=== PATIENT | female | born 2000 | race Caucasian/White ===

== ENCOUNTER 2024-06-28 14:47 | Outpatient (CLI) | payer OTHER, SELFPAY ==
--- NOTE | ~2024-06-28 | US_ITS ---
EXAMINATION: US OB <=14 wk fetus w TV DATE: 06/28/2024 15:40 CDT INDICATION: Dating COMPARISON: None TECHNIQUE: Real-time transabdominal and transvaginal obstetric ultrasound. FINDINGS: 2 para 0 Last menstrual period is given as 04/30/2024. Estimated date of delivery by last menstrual period is 02/04/2025 The uterus measures 12.4 x 6.0 x 5.6 cm. A gestational sac is identified within the uterus. A pole is identified, with a crown-rump length that measures 1.70 cm, corresponding to an appro ximate gestational age of 8 weeks and 2 days. cardiac activity is identified at a rate of 176 bpm. The right ovary measures 3.1 x 2.7 x 1.9 cm. Despite prolonged interrogation, the left ovary was not visualized. Estimated date of delivery by ultrasound is 02/05/2025 IMPRESSION: Single intrauterine gestation with an approximate gestational age of 8 weeks and 2 days, with c ardiac activity identified. Reviewed, dictated and finalized at location A. IMPRESSION: Single intrauterine gestation with an approximate gestational age of 8 weeks an d 2 days, with cardiac activity identified.
== END 2024-06-28 14:48 | disposition home or self-care (01) ==
LOC: GOSHIMG 14:47
PROVIDERS: PCP Student in an Organized Health Care Education/Training Program; Visit Provider Student in an Organized Health Care Education/Training Program
DX: N91.2 Amenorrhea, unspecified (principal); Z3A.08 8 weeks gestation of pregnancy
CPT/HCPCS: 76801; 76817

== ENCOUNTER 2024-08-05 12:31 | Emergency (ER) | payer OTHER, MEDICAID, SELFPAY ==
--- NOTE | ~2024-08-05 | US_ITS ---
FIRST TRIMESTER ULTRASOUND 08/05/2024 13:50 CDT Ordering provider: Rodriguez Boyce MD History: . Vaginal bleeding . Comparison: None. FINDINGS: INTRAUTERINE GESTATIONAL SAC: Present. YOLK SAC: Not visualized. POLE: Present. Measures 7.9 cm. Equivalent to 13 weeks and 6 days. heart rate is 146 bpm. GESTATIONAL AGE BY LMP: GESTATIONAL AGE BY TODAY'S US: UTERUS: The uterus measures 15.3x 10.5x 10.7 cm in length which is within normal limits. No myometria l masses. FREE FLUID: None. OVARIES: Normal in size with the right measuring 2.9x 2.3x 2.8 cm and the left is not visualized Dopp ler flow is demonstrated within the right ovary. ADNEXAL MASSES: None. IMPRESSION: Intrauterine live of 13 weeks and 6 days. JUAN MANUEL is February 04, 2025. Reviewed, dictated and finalized at location A.
[2024-08-05 12:33] VITALS: BP 141/60; PULSE 96; RESP 18; TEMP 36.2; O2SAT 100
--- OUTSIDE RECORDS SUMMARY | 2024-08-05 12:34 | XMS_ITS | Clinical Summary ---
Author Organization [facility] Address [address] [place] [address] Care Team Providers Care Game Protector Name Role Phone Ankur Vanegas MD Primary Care Provider [phone] Allergies No known active allergies Medications atomoxetine (STRATTERA) 10 mg capsule 5 Active escitalopram oxalate (LEXAPRO) 10 mg tablet TAKE 1 Tablet BY MOUTH DAILY AT 7am 5 Active naltrexone (DEPADE) 50 mg tablet TAKE 1 Tablet BY MOUTH DAILY AT 7am 5 Active fluticasone propionate (FLONASE) 50 mcg/spray [place], Suspension nasal inhalerIndicatio ns:Allergic rhinitis, unspecified seasonality, unspecified trigger Administer 2 Sprays in each nostril daily. 16 Gram 1 5 Active Active Problems Problem Noted Date Diagnosed Date Tobacco use 05/24/2024 Cocaine abuse 05/24/2024 Overview (05/24/2024): Has not used in 2 years Methamphetamine abuse 05/24/2024 Overview (05/24/2024): Has not used in 2 years Opioid abuse 05/24/2024 Overview (05/24/2024): Has not used in 2 years Alcohol abuse 05/24/2024 Anxiety 05/24/2024 Recurrent major depressive disorder, in partial remission 05/24/2024 Attention deficit hyperactivity disorder (ADHD) 05/24/2024 Encounters Date Type Department Care Team Description 07/05/2024 External Device Data [facility] ABSTRACTION Provider, Abstract 07/04/2024 External Device Data [facility]CTION Provider, Abstract 06/24/2024 External Device Data [facility]CTION Provider, Abstract 06/23/2024 External Device Data [facility] ABSTRACTION Provider, Abstract 06/20/2024 External Device Data [facility] ABSTRACTION Provider, Abstract 06/06/2024 External Device Data [facility] ABSTRACTION Provider, Abstract 05/30/2024 External Device Data [facility] ABSTRACTION Provider, Abstract 05/30/2024 External Device Data [facility] ABSTRACTION Provider, Abstract 05/30/2024 External Device Data [facility] ABSTRACTION Provider, Abstract 05/29/2024 Results Follow-Up [facility] [address] [facility] [address] [place] [address] Shirin Marie FNP CBC WITH DIFFERENTIAL, COMPREHENSIVE METABOLIC PANEL, TSH REFLEXIVE, Additional followed-up results: 2 05/24/2024 11:00 AM CHILD NUTRITION MANAGER Office Visit [facility] [address] [place] [address] [address] [place] [phone] Shirin Marie FNP Encounter to establish care (Primary Dx); Alcohol abuse; Tobacco use; Cervical cancer screening; Refused influenza vaccine; Allergic rhinitis, unspecified seasonality, unspecified trigger; Opioid abuse ([facility]); Methamphetamine abuse ([facility]); Cocaine abuse ([facility]); Anxiety; Attention deficit hyperactivity disorder (ADHD), unspecified ADHD type; Recurrent major depressive disorder, in partial remission; Screening for lipid disorders; Screening for diabetes mellitus (DM); Thyroid disorder screen from Last 3 Months Family History Medical History Relation Name Comments prediabetes Father Diabetes Paternal Grandfather Heart Disease Paternal Grandmother Relation Name Status Comments Brother Alive Father Alive Mother Alive Paternal Grandfather Paternal Grandmother Social History Tobacco Use Types Packs/Day Years Used Date Smoking Tobacco: Every Day Cigarettes 0.3 10.2 Started: 05/24/2014 Smokeless Tobacco: Current Alcohol Use Standard Drinks/Week Comments Not Currently 0 (1 standard drink = 0.6 oz pur e alcohol) sober 3 months Comments No Sex and Gender Information Value Date Recorded Sex Assigned at Not on file Legal Sex Female 10:12 AM CHILD NUTRITION MANAGER Gender Identity Not on file Sexual Orientation Not on file Last Filed Vital Signs Vital Sign Reading Time Taken Comments Blood Pressure 100/70 05/24/2024 11:10 AM CHILD NUTRITION MANAGER Pulse 100 05/24/2024 11:10 AM CHILD NUTRITION MANAGER Temperature 36.6 C (97.9 F) 05/24/2024 11:10 AM CHILD NUTRITION MANAGER Respiratory Rate - - Oxygen Saturation 99% 05/24/2024 11:10 AM CHILD NUTRITION MANAGER Inhaled Oxygen Concentration - - Weight 85.7 kg (189 lb) 05/24/2024 11:10 AM CHILD NUTRITION MANAGER Height 162.6 cm (5' 4 ) 05/24/2024 11:10 AM CHILD NUTRITION MANAGER Body Mass Index 32.44 05/24/2024 11:10 AM CHILD NUTRITION MANAGER Plan of Treatment Upcoming Encounters Date Type Department Care Team (Late st Contact Info) Description 05/24/2025 10:00 AM CHILD NUTRITION MANAGER Office Visit [facility] [address] [place] [address] Shirin Marie FNP [address] [place] [address] Health Maintenance Due Date Last Done Comments HPV VACCINES (1 - 3-dose series) 2013 DTAP/TDAP/TD VACCINES (1 - Tdap) 2017 HEPATITIS B VACCINES (1 of 3 - 19+ 3-dose series) 06/18 CERVICAL CANCER SCREENING 07/07/2019 HPV/Cotest (21-29) 07/07/2019 PAP SMEAR 07/07/2019 PAP SMEAR 07/07/2019 Preventative Visit- Commercial 04/19/2024 INFLUENZA VACCINE Completed 05/24/2024 Procedures Procedure Name Priority Date/Time Associated Diagnosis Comments HEMOGLOBIN A1C Routine 05/26/2024 9:22 AM CHILD NUTRITION MANAGER Encounter to establish care Screening for diabetes mellitus (DM) LIPID PANEL Routine 05/26/2024 9:22 AM CHILD NUTRITION MANAGER Encounter to establish care Screening for lipid disorders TSH REFLEXIVE Routine 05/26/2024 9:22 AM CHILD NUTRITION MANAGER Encounter to establish care Thyroid disorder screen COMPREHENSIVE METABOLIC PANEL Routine 05/26/2024 9:22 AM CHILD NUTRITION MANAGER Encounter to establish care CBC WITH DIFFERENTIAL Routine 05/26/2024 9:22 AM CHILD NUTRITION MANAGER Encounter to establish care from Last 3 Months Results * TSH REFLEXIVE (05/26/2024 9:22 AM CHILD NUTRITION MANAGER) TSH 1.80 mIU/L [facility] Comment: Reference Range > or = 20 Years 0.40-4.50 Ranges First trimester 0.26-2.66 Second trimester 0.55-2.73 Third trimester 0.43-2.91 FASTING:YES FASTING: YES Test Performed at: [facility] [address] [place] [address] LaceyAudreyCierra Stewart Vo Blood 05/26/2024 9:22 AM CHILD NUTRITION MANAGER 05/26/2024 9:22 AM CHILD NUTRITION MANAGER Shirin Marie F [facility] CHEMISTRY ORDERABLES Final Re sult [facility] [phone] [facility] [place] [address] [place] [address] * CBC WITH DIFFERENTIAL (05/26/2024 9:22 AM CHILD NUTRITION MANAGER) WBC 5.5 3.8 - 10.8 Thousand/u L [facility] RBC 4.70 3.80 - 5.10 Million/uL [facility] HEMOGLOBIN 14.6 11.7 - 15.5 g/dL [facility] HEMATOCRIT 43.8 35.0 - 45.0 % [facility] MCV 93.2 80.0 - 100.0 fL [facility] MCH 31.1 27.0 - 33.0 pg [facility] MCHC 33.3 32.0 - 36.0 g/dL [facility] Comment: For adults, a slight decrease in the calculated MCHC value (in the range of 30 to 32 g/dL) is most likely not clinically significant; however, it should be interpreted with caution in correlation with other red cell parameters and the patient's clinical condition. RDW 11.7 11.0 - 15.0 % [facility] PLATELETS 234 140 - 400 Thousand/u L [facility] MPV 10.4 7.5 - 12.5 fL [facility] NEUTROPHIL ABSOLUTE 3,069 1,500 - 7,800 cells/uL [facility] LYMPHOCYTE ABSOLUTE 1,942 850 - 3,900 cells/uL [facility] MONOCYTE ABSOLUTE 369 200 - 950 cells/uL [facility] EOSINOPHIL ABSOLUTE 110 15 - 500 cells/uL [facility] BASOPHILS ABSOLUTE 11 0 - 200 cells/uL [facility] NEUTROPHIL 55.8 % [facility] LYMPHOCYTES 35.3 % [facility] MONOCYTE 6.7 % [facility] EOSINOPHILS 2.0 % [facility] BASOPHILS 0.2 % [facility] Comment: FASTING:YES FASTING: YES Test Performed at: [facility] [place] [address] [address] Gerda Steve Blood 05/26/2024 9:22 AM CHILD NUTRITION MANAGER 05/26/2024 9:22 AM CHILD NUTRITION MANAGER Shirin Marie F [facility] HEMATOLOGY ORDERABLES Final R esult [facility] [phone] [facility] [place] [address] [address] * HEMOGLOBIN A1C (05/26/2024 9:22 AM CHILD NUTRITION MANAGER) HEMOGLOBIN A1C 5.6 <5.7 % of total Hgb [facility]ones[facility]ilo Garza Comment: For the purpose of screening for the presence of diabetes: <5.7% Consistent with the absence of diabetes 5.7-6.4% Consistent with increased risk for diabetes (prediabetes) > or =6.5% Consistent with diabetes This assay result is consistent with a decreased risk of diabetes. Currently, no consensus exists regarding use of hemoglobin A1c for diagnosis of diabetes in children. According to [place] [employer] (ADA) guidelines, hemoglobin A1c <7.0% represents optimal control in non- diabetic patients. Different metrics may apply to specific patient populations. Standards of Medical Care in Diabetes(ADA). ESTIMATED AVERAGE GLUCOSE (MG/DL) 114 mg/dL [facility] jordan Greg ESTIMATED AVERAGE GLUCOSE (MMOL/L) 6.3 mmol/L [facility] Comment: FASTING:YES FASTING: YES Test Performed at: [facility] [place] [address] [phone] LaceyFarshad Pat Steve Blood 05/26/2024 9:22 AM CHILD NUTRITION MANAGER 05/26/2024 9:22 AM CHILD NUTRITION MANAGER Shirin Mejiajuaquin CON[facility]ER [facility] CHEMISTRY ORDERABLES Final Re sult [facility] [phone] [place] [address] [address] [address] * (ABNORMAL) LIPID PANEL (05/26/2024 9:22 AM CHILD NUTRITION MANAGER) CHOLESTEROL 186 <200 mg/dL [facility] HDL 41(L) > OR = 50 mg/dL [facility] TRIGLYCERIDE 85 <150 mg/dL [facility] LDL CALCULATED 127(H) mg/dL (calc) [facility] Comment: Reference range: <100 Desirable range <100 mg/dL for primary prevention; <70 mg/dL for patients with CHD or diabetic patients with > or = 2 CHD risk factors. LDL-C is now calculated using the Stewart-Alfredo calculation, which is a validated novel method providing better accuracy than the Friedewald equation in the estimation of LDL-C. Stewart TOBAR et al. PETER. 2013;310(19): 2995-1437 (http://education.Arimaz.Advanced System [employer]s/faq/XGS147) CHOL/HDL RATIO 4.5 <5.0 (calc) [facility] NON-HDL CHOLESTEROL 145(H) <130 mg/dL (calc) [facility] Comment: For patients with diabetes plus 1 major ASCVD risk factor, treating to a non-HDL-C goal of <100 mg/dL (LDL-C of <70 mg/dL) is considered a therapeutic option. Test Performed at: [facility] [place] [address] [address] Gerda Stewart Vo Blood 05/26/2024 9:22 AM CHILD NUTRITION MANAGER 05/26/2024 9:22 AM CHILD NUTRITION MANAGER Shirin Marie CONSUMER ADVOCATE CHEMISTRY ORDERABLES Final Re sult [facility] [phone] [facility] [place] [address] [address] * COMPREHENSIVE METABOLIC PANEL (05/26/2024 9:22 AM CHILD NUTRITION MANAGER) GLUCOSE 86 65 - 99 mg/dL [facility] Atile[facility] jordan Greg Comment: Fasting reference interval BUN 10 7 - 25 mg/dL Summer StacieAudreyLilo jordan Greg CREATININE 0.78 0.50 - 0.96 mg/dL [facility] GFR 108 > OR = 60 mL/min/1. 73m2 CamStentLilo Garza BUN/CREAT RATIO SEE NOTE: (calc) [facility] St[facility]ie[facility] jul[facility] Garza Comment: Not Reported: BUN and Creatinine are within reference range. SODIUM 136 135 - 146 mmol/L [facility]Stent[facility]ilo Garza POTASSIUM 4.6 3.5 - 5.3 mmol/L [facility] Stac[facility]ityNetS julian Greg CHLORIDE 100 98 - 110 mmol/L [facility] St[facility]S julian Greg CO2 28 20 - 32 mmol/L [facility] Stacie-S julian Garza CALCIUM 9.7 8.6 - 10.2 mg/dL [facility] TOTAL PROTEIN 7.7 6.1 - 8.1 g/dL [facility] Gar[facility] ALBUMIN 4.7 3.6 - 5.1 g/dL [facility] GLOBULIN 3.0 1.9 - 3.7 g/dL (calc) [facility] julian Greg ALBUMIN/GLOBULIN RATIO 1.6 1.0 - 2.5 (calc) [facility] BILIRUBIN TOTAL 0.6 0.2 - 1.2 mg/dL Summer [facility]ilo jordan Greg ALKALINE PHOSPHATASE 61 31 - 125 U/L [facility] AST 17 10 - 30 U/L [facility] Greg ALT 10 6 - 29 U/L [facility] Greg Comment: FASTING:YES FASTING: YES Test Performed at: [facility] [place] [address] [address] [address] Gerda Stewart Vo Blood 05/26/2024 9:22 AM CHILD NUTRITION MANAGER 05/26/2024 9:22 AM CHILD NUTRITION MANAGER us Shirin Gandhitoño CONSUMER ADVOCATE CHEMISTRY ORDERABLES Final Re sult [facility] [phone] [facility] [address] [place] [address] from Last 3 Months Insurance [employer] CHOICE POS II Care Teams Game Protector Relationship Specialty [place] [address] [address] PCP - General Internal Medicine 05/24/24
--- OUTSIDE RECORDS SUMMARY | 2024-08-05 12:34 | XMS_ITS | Continuity of Care Document ---
Author Organization [facility] Address [address] [place] [address] Phone Care Team Providers Care Kettle Fry Cook Operator Name Role Phone Quigley OD, Geovanny Unavailable Unavailable Procedures Procedure Date Eye Exam, New Patient Refraction Advance Directives Directive Yes / No Effective Date File Name No Information Encounters Encounter Description Practice Location Reason(s) For Visit Diagnoses Date Provider Providers Copied on Encounter [facility], [address], [place], [place], [address], [place] tel:[phone] SEC [facility] No Information 8-201 0 Quigley OD Geovanny. [address] [facility] , [address], [place], [address], [place]. tel:[phone] Family History Family Member Type Diagnosis Age At Onset No Information Payers Payer name Insurance type Covered republican ID Authoriza tion(s) No Information Social History [...]
[2024-08-05 13:15] VITALS: BP 110/66; PULSE 94; RESP 18; TEMP 37; O2SAT 100
[2024-08-05 13:36] LABS: Basophils Percent Auto 0.1 % (0.2-1.2); Eosinophils Absolute Auto 0.1 K/mm3 (0-0.3); Hematocrit 38.3 % (37.0-47.0); Hemoglobin 12.6 g/dL (12.0-15.0); Immature Granulocyte Absolute 0.03 K/mm3 (0.00-0.031); Immature Granulocyte Percent A 0.3 % (0-0.5); Lymphocytes Percent Auto 19.5 % (18.3-44.2); Mean Corpuscular HGB Conc 32.9 g/dl (32-36); Mean Corpuscular Hemoglobin 30.3 pg (26-34); Mean Corpuscular Volume 92.1 fl (80-100); Mean Platelet Volume 10.1 fl (7.4-10.4); Monocytes Absolute Auto 0.7 K/mm3 (0.1-0.6); Monocytes Percent Auto 5.5 % (2.6-8.5); Neutrophils Absolute Auto 8.7 K/mm3 (1.3-6.7); Neutrophils Percent Auto 73.6 % (45.5-73.1); Platelet Count Result 251 k/mm3 (150-375); Red Blood Count 4.16 M/mm3 (4.2-5.4); Red Cell Distribution Width 12.4 % (11.5-14.5); White Blood Count 11.8 K/mm3 (4.5-10.0)
[2024-08-05 13:47] LABS: Alanine Aminotransferase 15 U/L (6-35); Albumin Level 4.3 g/dL (3.5-5.1); Alkaline Phosphatase 54 U/L (38-126); Anion Gap 10 mmol/L (4-12); Aspartate Amino Transferase 23 U/L (14-36); Bilirubin,Total 0.3 mg/dL (0.2-1.3); Blood Urea Nitrogen 6 mg/dL (7-17); Calcium 9.6 mg/dL (8.4-10.2); Carbon Dioxide 23 mmol/L (22-30); Chloride 103 mmol/L (98-107); Estimated CRCL calculation 141 ml/min; Estimated Glomerular Filt Rate > 60; Glucose 83 mg/dL (65-110); Potassium 3.6 mmol/L (3.4-5.0); Sodium 136 mmol/L (137-145)
[2024-08-05 13:48] LABS: INR 0.9; Partial Thromboplastin Time 29.3 Seconds (22.3-36.8); Prothrombin Time 12.9 Seconds (11.1-14.7)
--- OUTSIDE RECORDS SUMMARY | 2024-08-05 13:53 | XMS_ITS | Continuity of Care Document ---
Author Organization [facility] Address [address] [place] [address] Phone Care Team Providers Care Senior Government Program Analyst Name Role Phone Quigley OD, Geovanny Unavailable Unavailable Procedures Procedure Date Eye Exam, New Patient Refraction Advance Directives Directive Yes / No Effective Date File Name No Information Encounters Encounter Description Practice Location Reason(s) For Visit Diagnoses Date Provider Providers Copied on Encounter [facility], [address], [place], [place], [address], [place] tel:[phone] SEC [facility] No Information 8-201 0 Quigley OD Geovanny. [address] [facility] , [address], [place], [address], [place]. tel:[phone] Family History Family Member Type Diagnosis Age [...]
--- OUTSIDE RECORDS SUMMARY | 2024-08-05 13:53 | XMS_ITS | Clinical Summary ---
Author Organization [facility] Address [address] [place] [address] Care Team Providers Care Ecd Name Role Phone Ankur Vanegas MD Primary Care Provider [phone] Allergies No known active allergies Medications atomoxetine (STRATTERA) 10 mg capsule 5 Active escitalopram oxalate (LEXAPRO) 10 mg tablet TAKE 1 Tablet BY MOUTH DAILY AT 7am 5 Active naltrexone (DEPADE) 50 mg tablet TAKE 1 Tablet BY MOUTH DAILY AT 7am 5 Active fluticasone propionate (FLONASE) 50 mcg/spray [place], Suspension nasal inhalerIndicatio ns:Allergic rhinitis, unspecified seasonality, [...] STL ABSTRACTION Provider, Abstract 05/29/2024 Results Follow-Up [facility] Internal [facility] [address] [place] [address] Shirin Marie FNP CBC WITH DIFFERENTIAL, COMPREHENSIVE METABOLIC PANEL, TSH REFLEXIVE, Additional followed-up results: 2 05/24/2024 11:00 AM ELECTRON BEAM WELDER SETTER Office Visit [facility] Internal [facility] [id number] [place] [address] [address] [place] [phone] Shirin Marie FNP Encounter to establish care (Primary Dx); Alcohol abuse; Tobacco use; Cervical cancer screening; Refused influenza vaccine; Allergic rhinitis, unspecified seasonality, unspecified trigger; Opioid abuse ([facility]); Methamphetamine abuse ([facility]); Cocaine abuse ([facility]); Anxiety; Attention deficit hyperactivity disorder (ADHD), unspecified [...] on file Legal Sex Female 10:12 AM ELECTRON BEAM WELDER SETTER Gender Identity Not on file Sexual Orientation Not on file Last Filed Vital Signs Vital Sign Reading Time Taken Comments Blood Pressure 100/70 05/24/2024 11:10 AM ELECTRON BEAM WELDER SETTER Pulse 100 05/24/2024 11:10 AM ELECTRON BEAM WELDER SETTER Temperature 36.6 C (97.9 F) 05/24/2024 11:10 AM ELECTRON BEAM WELDER SETTER Respiratory Rate - - Oxygen Saturation 99% 05/24/2024 11:10 AM ELECTRON BEAM WELDER SETTER Inhaled Oxygen Concentration - - Weight 85.7 kg (189 lb) 05/24/2024 11:10 AM ELECTRON BEAM WELDER SETTER Height 162.6 cm (5' 4 ) 05/24/2024 11:10 AM ELECTRON BEAM WELDER SETTER Body Mass Index 32.44 05/24/2024 11:10 AM ELECTRON BEAM WELDER SETTER Plan of Treatment Upcoming Encounters Date Type Department Care Team (Late st Contact Info) Description 05/24/2025 10:00 AM ELECTRON BEAM WELDER SETTER Office Visit [facility] [address] [place] [address] Shirin Marie FNP [address] [place] [address] Health Maintenance Due Date Last [...] Comments HEMOGLOBIN A1C Routine 05/26/2024 9:22 AM ELECTRON BEAM WELDER SETTER Encounter to establish care Screening for diabetes mellitus (DM) LIPID PANEL Routine 05/26/2024 9:22 AM ELECTRON BEAM WELDER SETTER Encounter to establish care Screening for lipid disorders TSH REFLEXIVE Routine 05/26/2024 9:22 AM ELECTRON BEAM WELDER SETTER Encounter to establish care Thyroid disorder screen COMPREHENSIVE METABOLIC PANEL Routine 05/26/2024 9:22 AM ELECTRON BEAM WELDER SETTER Encounter to establish care CBC WITH DIFFERENTIAL Routine 05/26/2024 9:22 AM ELECTRON BEAM WELDER SETTER Encounter to establish care from Last 3 Months Results * TSH REFLEXIVE (05/26/2024 9:22 AM ELECTRON BEAM WELDER SETTER) TSH 1.80 mIU/L [facility] julian Garza Comment: Reference Range > or = 20 Years 0.40-4.50 Ranges First trimester 0.26-2.66 Second trimester 0.55-2.73 Third trimester 0.43-2.91 FASTING:YES FASTING: YES Test Performed at: [facility] [address] [place] [address] LaceyAudreyCierra Stewart Vo Blood 05/26/2024 9:22 AM ELECTRON BEAM WELDER SETTER 05/26/2024 9:22 AM ELECTRON BEAM WELDER SETTER Shirin Marie [facility] CHEMISTRY ORDERABLES Final Re sult [facility] [phone] [facility] [place] [address] [place] [address] * CBC WITH DIFFERENTIAL (05/26/2024 9:22 AM ELECTRON BEAM WELDER SETTER) WBC 5.5 3.8 - 10.8 Thousand/u L [...] 2.0 % Summer Garza BASOPHILS 0.2 % [facility] Garza Comment: FASTING:YES FASTING: YES Test Performed at: [facility] [place] [address] [place] [phone] Gerda Steve Blood 05/26/2024 9:22 AM ELECTRON BEAM WELDER SETTER 05/26/2024 9:22 AM ELECTRON BEAM WELDER SETTER Shirin Marie [facility] HEMATOLOGY ORDERABLES Final R esult [facility] [phone] [facility] [place] [address] [place] [address] * HEMOGLOBIN A1C (05/26/2024 9:22 AM ELECTRON BEAM WELDER SETTER) HEMOGLOBIN A1C 5.6 <5.7 % of total [...] diagnosis of diabetes in children. According to [place] Diabetes Association (ADA) guidelines, hemoglobin A1c <7.0% represents optimal control in non- diabetic patients. Different metrics may apply to specific patient populations. Standards of Medical Care in Diabetes(ADA). ESTIMATED AVERAGE GLUCOSE (MG/DL) 114 mg/dL Summer APR EnergyAudreyLilo jordan Greg ESTIMATED AVERAGE GLUCOSE (MMOL/L) 6.3 mmol/L Summer Garza Comment: FASTING:YES FASTING: YES Test Performed at: [employer] [place] [address] [address] LaceyFarshad Pat Steve Blood 05/26/2024 9:22 AM ELECTRON BEAM WELDER SETTER 05/26/2024 9:22 AM ELECTRON BEAM WELDER SETTER Shirin Mejiajuaquin VOCATIONAL AIDE CHEMISTRY ORDERABLES Final Re sult [facility] [phone] [place] [address] [place] [address] * (ABNORMAL) LIPID PANEL (05/26/2024 9:22 AM ELECTRON BEAM WELDER SETTER) CHOLESTEROL 186 <200 mg/dL Summer APR EnergyCarlos Garza HDL 41(L) > OR = 50 mg/dL Summer APR EnergyCarlos Garza TRIGLYCERIDE 85 <150 mg/dL [facility] LDL CALCULATED 127(H) mg/dL (calc) Summer [...] LDL-C. Stewart TOBAR et al. PETER. 2013;310(19): 8752-3793 (http://education.[employer]/faq/UFA003) CHOL/HDL RATIO 4.5 <5.0 (calc) Summer Garza NON-HDL CHOLESTEROL 145(H) <130 mg/dL (calc) Summer Garza Comment: For patients with diabetes plus 1 major ASCVD risk factor, treating to a non-HDL-C goal of <100 mg/dL (LDL-C of <70 mg/dL) is considered a therapeutic option. Test Performed at: [place] [address] [place] [address] Gerda Stewart Vo Blood 05/26/2024 9:22 AM ELECTRON BEAM WELDER SETTER 05/26/2024 9:22 AM ELECTRON BEAM WELDER SETTER Shirin Marie VOCATIONAL AIDE CHEMISTRY ORDERABLES Final Re sult [facility] [phone] [place] [address] [place] [address] * COMPREHENSIVE METABOLIC PANEL (05/26/2024 9:22 AM ELECTRON BEAM WELDER SETTER) GLUCOSE 86 65 - 99 mg/dL Summer MedisseLilo jordan Greg Comment: Fasting reference interval BUN 10 7 - 25 mg/dL Summer StacieAudreyLilo jordan Greg CREATININE 0.78 0.50 - 0.96 mg/dL Summer MedisseLilo Garaz GFR 108 > OR = 60 mL/min/1. 73m2 [facility] Garza BUN/CREAT RATIO SEE NOTE: (calc) Summer Stacie-S julian Garza Comment: Not Reported: BUN and Creatinine are within reference range. SODIUM 136 135 - 146 mmol/L [employer] Gar[facility] POTASSIUM 4.6 3.5 - 5.3 mmol/L [facility] julian Greg CHLORIDE 100 98 - 110 mmol/L Summer [facility] julian Greg CO2 28 20 - 32 mmol/L [employer] Stacie-S julian Garza CALCIUM 9.7 8.6 - 10.2 mg/dL [facility] TOTAL PROTEIN 7.7 6.1 - 8.1 g/dL Summer [facility]ones-S julian Garza ALBUMIN 4.7 3.6 - 5.1 g/dL [facility] julian Garza GLOBULIN 3.0 1.9 - 3.7 g/dL (calc) Summer [employer] julian Greg ALBUMIN/GLOBULIN RATIO 1.6 1.0 - 2.5 (calc) Summer [employer] julian Garza BILIRUBIN TOTAL 0.6 0.2 - 1.2 mg/dL Summer [employer]Lilo jordan Greg ALKALINE PHOSPHATASE 61 31 - 125 U/L [facility] julian Garza AST 17 10 - 30 U/L [facility] julian Greg ALT 10 6 - 29 U/L [facility] julian Greg Comment: FASTING:YES FASTING: YES Test Performed at: [place] [address] [place] [address] Gerda Stewart Vo Blood 05/26/2024 9:22 AM ELECTRON BEAM WELDER SETTER 05/26/2024 9:22 AM ELECTRON BEAM WELDER SETTER us Shirin Gandhitoño VOCATIONAL AIDE CHEMISTRY ORDERABLES Final Re sult [facility] [phone] [facility] [address] [place] [address] from Last 3 Months Insurance AETNA CHOICE POS II Care Teams Ecd Relationship Specialty [place] [address] [address] PCP - General Internal Medicine 05/24/24
[2024-08-05 14:52] VITALS: BP 135/65; PULSE 75; RESP 16; O2SAT 100
--- NOTE | 2024-08-05 15:08 | ED.GENADULT ---
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 Patient reports she is approximately 13 weeks 5 days reports that she had a small amount of dark red blood and reports that she is Rh negative Related Data Home Medications ?Medication ?Instructions ?Recorded ?Confirmed ?Last Taken ?Type docosahexaenoic acid 200 mg mg PO 06/21/24 07/19/24 Unknown History capsule ( DHA) Allergies Allergy/AdvReac Type Severity Reaction Status Date / Time No Known Allergies Allergy Verified 08/05/24 13:14 Review of Systems Review of Systems: A 10 system review of systems was completed on the patient and is negative except for what is stated in the HPI. Nursing and ancillary documentation was reviewed[facility] Past Medical History Medical History Hx of substance abuse Threatened Pancreatitis History of alcohol abuse Family History Family History Grandparent Diabetes mellitus Social History Social History Smoking status: Current every day smoker Tobacco type: cigarettes and e-cigarettes/vaping Second hand tobacco smoke exposure: Yes Alcohol intake: former Alcohol use details: STOPPED 05/2023 Substance use: former Substance use type: crack/cocaine, sedatives, painkillers and methamphetamine Do You Feel Safe in your Home?: Yes Lack of Transportation: No Lack of Food: Never True Current Housing: I Have Housing Concerned About Future Housing: No Difficulty Paying Gas/Electric Bills: No Difficulty Paying for Meds: No Currently Unemployed: No Education: High School Diploma/GED Difficulty w/ Childcare or Family Care: No Living arrangements: with family Occupation/Education: occupation Additional occupation/education comments: [employer] Gender identity (if verbalized by the patient): Female Sexual Orientation (if Verbalized by the Patient): Straight or Heterosexual Exam Narrative: GENERAL: Well-appearing, well-nourished, and in no acute distress. HEAD: Normocephalic, atraumatic. EYES: PERRLA and EOMI. ENT: Nares clear, no rhinorrhea or epistaxis. Mucous membranes moist. NECK: Supple. CHEST: Clear to auscultation. No respiratory distress. HEART: Regular rate and rhythm. No murmur heard. Normal peripheral pulses. ABDOMEN: Soft, nontender, nondistended, normal active bowel sounds. : Small amount of dark blood in the vaginal vault cervix is closed EXTREMITIES: Normal range of motion. No edema. SKIN: Warm, dry, no rash. NEURO: No focal deficits. Alert and oriented x3. PSYCH: Normal mood and affect. Course Vital Signs Vital signs: Vital Signs Temperature 36.2 C L 08/05/24 12:33 Pulse Rate 96 08/05/24 12:33 Respiratory Rate 18 08/05/24 12:33 Blood Pressure 141/60 H 08/05/24 12:33 Pulse Oximetry 100 08/05/24 12:33 Oxygen Delivery Room Air 08/05/24 12:33 Temperature 37.0 C 08/05/24 13:15 Pulse Rate 75 08/05/24 14:52 Respiratory Rate 16 08/05/24 14:52 Blood Pressure 135/65 08/05/24 14:52 Pulse Oximetry 100 08/05/24 14:52 Oxygen Delivery Room Air 08/05/24 12:33 Medical Decision Making MDM Narrative Medical decision making narrative: Differential diagnosis includes threatened miscarriage, incomplete miscarriage, Ultrasound was obtained on the patient that showed 13 week 6 days with a heart rate of 146 Patient will be given RhoGAM in the emergency department and the patient be discharged follow-up with her OBGYN Vital Signs Vital Signs: Vital Signs Temperature 36.2 C L 08/05/24 12:33 Pulse Rate 96 08/05/24 12:33 Respiratory Rate 18 08/05/24 12:33 Blood Pressure 141/60 H 08/05/24 12:33 Pulse Oximetry 100 08/05/24 12:33 Oxygen Delivery Room Air 08/05/24 12:33 Temperature 37.0 C 08/05/24 13:15 Pulse Rate 75 08/05/24 14:52 Respiratory Rate 16 08/05/24 14:52 Blood Pressure 135/65 08/05/24 14:52 Pulse Oximetry 100 08/05/24 14:52 Oxygen Delivery Room Air 08/05/24 12:33 Lab Data 08/05/24 13:30 08/05/24 13:30 Labs: Lab Results 08/05/24 Range/Units 13:30 WBC 11.8 H (4.5-10.0) K/mm3 RBC 4.16 L (4.2-5.4) M/mm3 Hgb 12.6 (12.0-15.0) g/dL Hct 38.3 (37.0-47.0) % MCV 92.1 (80-100) fl MCH 30.3 (26-34) pg MCHC 32.9 (32-36) g/dl RDW 12.4 (11.5-14.5) % Plt Count 251 (150-375) k/mm3 MPV 10.1 (7.4-10.4) fl Immature Gran % (Auto) 0.3 (0-0.5) % Neut % (Auto) 73.6 H (45.5-73.1) % Lymph % (Auto) 19.5 (18.3-44.2) % [place] % (Auto) 5.5 (2.6-8.5) % Eos % (Auto) 1.0 (0-4.4) % Baso % (Auto) 0.1 L (0.2-1.2) % Lymph # (Auto) 2.30 (0.9-3.2) K/mm3 [place] # (Auto) 0.7 H (0.1-0.6) K/mm3 Eos # (Auto) 0.1 (0-0.3) K/mm3 Baso # (Auto) 0.0 (0.0-0.1) K/mm3 Abs Immat Gran (auto) 0.03 (0.00-0.031) K/mm3 Absolute Neuts (auto) 8.7 H (1.3-6.7) K/mm3 Absolute Nucleated RBC 0.000 (0.0-0.012) K/mm3 Nucleated RBC % 0.0 (0.0-0.2) % PT 12.9 (11.1-14.7) Seconds INR 0.9 APTT 29.3 (22.3-36.8) Seconds Sodium 136 L (137-145) mmol/L Potassium 3.6 (3.4-5.0) mmol/L Chloride 103 (98-107) mmol/L Carbon Dioxide 23 (22-30) mmol/L Anion Gap 10 (4-12) mmol/L BUN 6 L (7-17) mg/dL Creatinine 0.54 L (0.7-1.0) mg/dL Estim Creat Clear Calc 141 ml/min Estimated GFR > 60 (59 - ) Glucose 83 (65-110) mg/dL Calcium 9.6 (8.4-10.2) mg/dL Total Bilirubin 0.3 (0.2-1.3) mg/dL AST 23 (14-36) U/L ALT 15 (6-35) U/L Alkaline Phosphatase 54 (38-126) U/L Total Protein 8.0 (6.3-8.2) g/dL Albumin 4.3 (3.5-5.1) g/dL Beta HCG, Quant 12113.00 mIU/ML Blood Type O Negative Antibody Screen Negative Screen Not Reportable Baby's Blood Type Not Reportable Baby's DONNA Not Reportable Doses of RhIg Required 1 Discharge Plan Discharge Clinical Impression: Threatened Patient Disposition: Home Condition: Stable Instructions: Antibiotic Form, Rh (By injection), Threatened Miscarriage (ED) Additional Instructions: Please follow-up with your OBGYN Patient Language: Cymraes Prescriptions: No Action aspirin 81 mg tablet,delayed release (DR/EC) 81 mg PO DAILY Qty: 90 3RF DHA 200 mg capsule PO Follow-up/Referrals: UNKNOWN,DOCTOR [Primary Care Provider] - Dangelo Matta MD [Physician] - Time of Disposition: 15:14
[2024-08-05 15:28] VITALS: BP 103/62; PULSE 79; RESP 16; TEMP 37.2; O2SAT 100
[2024-08-05] MEDS: RHO(D) IMMUNE GLOBULIN 300 MCG/2 ML SYRINGE IM (15:34)
== END 2024-08-05 15:38 | disposition home or self-care (01) ==
PROVIDERS: Emergency Provider Emergency Medicine
DX: O20.0 Threatened abortion (principal); Z3A.13 13 weeks gestation of pregnancy; Z67.91 Unspecified blood type, Rh negative; F17.210 Nicotine dependence, cigarettes, uncomplicated; F17.290 Nicotine dependence, other tobacco product, uncomplicated
CPT/HCPCS: 36415; 76801; 80053; 84702; 85025; 85461; 85610; 85730; 86850; 86900; 86901; 90384; 96372; 99284; J2790

== ENCOUNTER 2024-11-06 11:24 | Outpatient (CLI) | payer OTHER, SELFPAY ==
--- OUTSIDE RECORDS SUMMARY | 2024-11-06 11:27 | XMS_ITS | Clinical Summary ---
Author Organization [facility] Address [address] [place] [address] Care Team Providers Care Component Prep Operator Name Role Phone Unavailable Primary Care Provider Unavailabl e Source Comments [facility],non-owned Affiliates and Associated Physician Practices is amultiple site organization consisting of ambulatory clinics and hospital sitesin [place], [place], [place] and [place]. This disclosure is being madepursuant to the Care Everywhere program and may not contain all information available regarding this patient. Last updated 18.[facility] Allergies No known active allergies Medications * Be aware that medications may not be up to date on this document. Alwaysverify current medications with the patient. No known medications Social History Tobacco Use Types Packs/Day Years Used Date Smoking Tobacco: Every Day Smokeless Tobacco: Never Tobacco Cessation:Ready to Q uit: No; Counseling Given: Yes Comments No Sex and Gender Information Value Date Recorded Sex Assigned at Not on file Legal Sex Female 3:04 PM CDT Gender Identity Not on file Sexual Orientation Not on file Last Filed Vital Signs Vital Sign Reading Time Taken Comments Blood Pressure 100/62 12/05/2018 2:34 PM CDT Pulse 96 12/05/2018 2:34 PM CDT Temperature 37 C (98.6 F) 12/05/2018 2:34 PM CDT Respiratory Rate 18 01/05/2018 5:01 PM CDT Oxygen Saturation 99% 12/05/2018 2:34 PM CDT Inhaled Oxygen Concentration - - Weight 68 kg (150 lb) 12/05/2018 2:34 PM CDT Height 160 cm (5' 3) 12/05/2018 2:34 PM CDT Body Mass Index 26.57 12/05/2018 2:34 PM CDT Plan of Treatment Health Maintenance Due Date Last Done Comments HIV SCREENING 2013 HPV VACCINE (1 - 3-dose series) 2013 HEPATITIS C SCREENING 07/01/2016 DTAP/TDAP/TD VACCINES (1 - Tdap) 2017 HEPATITIS B VACCINE (1 of 3 - 19+ 3-dose series) 2017 COVID-19 VACCINE (1 - 2023-2 5 season) 2023 DEPRESSION SCREENING 04/19/2024 INFLUENZA VACCINE (#1) 2024 ZOSTER VACCINE (1 of 2) 2048 HIB VACCINE Aged Out No longer eligi ble based on patient's age to complete this topic MENINGOCOCCAL (Group B) VACC INE SHARED DECISION-MAKING Aged Out No longer eligibl e based on patient's age to complete this topic MENINGOCOCCAL GROUPS A/C/Y/W VACCINE Aged Out No longer eligible b ased on patient's age to complete this topic PNEUMOCOCCAL VACCINE Aged Out No long er eligible based on patient's age to complete this topic Insurance AETNA
--- OUTSIDE RECORDS SUMMARY | 2024-11-06 11:27 | XMS_ITS | Clinical Summary ---
Author Organization [facility] Address [address] [place] [address] Care Team Providers Care Design Cell Engineer Name Role Phone Ankur Vanegas MD Primary Care Provider Allergies No known active allergies Medications atomoxetine (STRATTERA) 10 mg capsule 5 Active escitalopram oxalate (LEXAPRO) 10 mg tablet TAKE 1 Tablet BY MOUTH DAILY AT 7am 5 Active naltrexone (DEPADE) 50 mg tablet TAKE 1 Tablet BY MOUTH DAILY AT 7am 5 Active fluticasone propionate (FLONASE) 50 mcg/spray [place], Suspension nasal inhalerIndicatio ns:Allergic rhinitis, unspecified seasonality, [...] Encounters Date Type Department Care Team Description 11/01/2024 External Device Data STL ABSTRACTION Provider, Abstract 10/31/2024 External Device Data STL ABSTRACTION Provider, Abstract 10/17/2024 External Device Data STL ABSTRACTION Provider, Abstract 10/17/2024 External Device Data STL ABSTRACTION Provider, Abstract 09/07/2024 External Device Data STL ABSTRACTION Provider, Abstract from Last 3 Months Family History Medical History Relation Name Comments prediabetes Father Diabetes Paternal Grandfather Heart Disease Paternal Grandmother Relation Name Status Comments Brother Alive Father Alive Mother Alive Paternal Grandfather Paternal Grandmother Social History Tobacco Use Types Packs/Day Years Used Date Smoking Tobacco: Every Day Cigarettes 0.3 10.5 Started: 05/24/2014 Smokeless Tobacco: Current Alcohol Use Standard Drinks/Week Comments Not Currently 0 (1 standard drink = 0.6 oz pur e alcohol) sober 3 months Comments No Sex and Gender Information Value Date Recorded Sex Assigned at Not on file Legal Sex Female 10:12 AM SQL BI DEVELOPER Gender Identity Not on file Sexual Orientation Not on file Last Filed Vital Signs Vital Sign Reading Time Taken Comments Blood Pressure 100/70 05/24/2024 11:10 AM SQL BI DEVELOPER Pulse 100 05/24/2024 11:10 AM SQL BI DEVELOPER Temperature 36.6 C (97.9 F) 05/24/2024 11:10 AM SQL BI DEVELOPER Respiratory Rate - - Oxygen Saturation 99% 05/24/2024 11:10 AM SQL BI DEVELOPER Inhaled Oxygen Concentration - - Weight 85.7 kg (189 lb) 05/24/2024 11:10 AM SQL BI DEVELOPER Height 162.6 cm (5' 4) 05/24/2024 11:10 AM SQL BI DEVELOPER Body Mass Index 32.44 05/24/2024 11:10 AM SQL BI DEVELOPER Plan of Treatment Upcoming Encounters Date Type Department Care Team (Late st Contact Info) Description 05/24/2025 10:00 AM SQL BI DEVELOPER Office Visit [facility] Internal Medicine [facility] [address] [place] [address] Shirin Marie FNP [address] [place] [address] Health Maintenance Due Date Last Done Comments HPV VACCINES (1 - 3-dose series) 2013 DTAP/TDAP/TD VACCINES (1 - Tdap) 2017 HEPATITIS B VACCINES (1 of 3 - 19+ 3-dose series) 06/18 CERVICAL CANCER SCREENING 07/07/2019 HPV/Cotest (21-29) 07/07/2019 PAP SMEAR 07/07/2019 Preventative Visit- Commercial 04/19/2024 INFLUENZA VACCINE (#1) 2024 05/24/2024 Insurance AETNA CHOICE POS II Care Teams Design Cell Engineer Relationship Specialty [place] [address] [address] PCP - General Internal Medicine 05/24/24
--- OUTSIDE RECORDS SUMMARY | 2024-11-06 11:27 | XMS_ITS | Continuity of Care Document ---
Author Organization [facility] Address [address] [place] [address] Phone Care Team Providers Care Floating Operator Name Role Phone Quigley OD, Geovanny Unavailable Unavailable Procedures Procedure Date Eye Exam, New Patient Refraction Advance Directives Directive Yes / No Effective Date File Name No Information Encounters Encounter Description Practice Location Reason(s) For Visit Diagnoses Date Provider Providers Copied on Encounter [facility], [address], [place], [place], [id number], [place] tel:[phone] [address] [facility] No Information 8-201 0 Quigley OD Geovanny. [address] , [address], [place], [address], [place]. tel:[phone] Family History Family Member Type Diagnosis Age At Onset No Information Payers Payer name Insurance type Covered constitution party ID Authoriza tion(s) No Information Social [...]
[2024-11-06 13:35] LABS: Hematocrit 36.4 % (37.0-47.0); Hemoglobin 11.6 g/dL (12.0-15.0); Mean Corpuscular HGB Conc 31.9 g/dl (32-36); Mean Corpuscular Hemoglobin 30.4 pg (26-34); Mean Corpuscular Volume 95.5 fl (80-100); Platelet Count Result 240 k/mm3 (150-375); Red Blood Count 3.81 M/mm3 (4.2-5.4); White Blood Count 11.9 K/mm3 (4.5-10.0)
[2024-11-06 14:08] LABS: Glucose 1 Hour PP 50gm Dose 136 mg/dL
[2024-11-06 14:47] LABS: HIV 1/2 Ab P24 Ag Result Negative (Negative)
[2024-11-06 17:24] LABS: Syphilis IgG/IgM Antibody Non-Reactive (Nonreactive)
[2024-11-13] MEDS: RHO(D) IMMUNE GLOBULIN 300 MCG/2 ML SYRINGE IM (13:36)
== END 2024-11-06 11:25 | disposition home or self-care (01) ==
LOC: ANHLAB 11:26
PROVIDERS: Visit Provider Student in an Organized Health Care Education/Training Program
DX: Z34.90 Encounter for supervision of normal pregnancy, unspecified, unspecified trimester (principal); Z3A.00 Weeks of gestation of pregnancy not specified
CPT/HCPCS: 36415; 82947; 85027; 85461; 86593; 86703; 86850; 86900; 86901; G0432

== ENCOUNTER 2024-11-13 09:07 | Outpatient (RCR) | payer OTHER, SELFPAY ==
--- OUTSIDE RECORDS SUMMARY | 2024-11-13 09:25 | XMS_ITS | Continuity of Care Document ---
Author Organization [facility] Address [address] [place] [address] Phone Care Team Providers Care Senior Oracle Developer Name Role Phone Quigley OD, Geovanny Unavailable Unavailable Procedures Procedure Date Eye Exam, New Patient Refraction Advance Directives Directive Yes / No Effective Date File Name No Information Encounters Encounter Description Practice Location Reason(s) For Visit Diagnoses Date Provider Providers Copied on Encounter [facility], [address], [place], [place], [id number], [place] tel:[phone] [facility] No Information 8-201 0 Quigley OD Geovanny. [address] , [address], [place], [address], [place]. tel:[phone] Family History Family Member Type Diagnosis Age [...]
--- OUTSIDE RECORDS SUMMARY | 2024-11-13 09:25 | XMS_ITS | Clinical Summary ---
Author Organization [facility] Address [address] [place] [address] Care Team Providers Care Correctional Substance Abuse Counselor Name Role Phone Ankur Vanegas MD Primary Care Provider [phone] Allergies No known active allergies Medications atomoxetine (STRATTERA) 10 mg capsule 5 Active escitalopram oxalate (LEXAPRO) 10 mg tablet TAKE 1 Tablet BY MOUTH DAILY AT 7am 5 Active naltrexone (DEPADE) 50 mg tablet TAKE 1 Tablet BY MOUTH DAILY AT 7am 5 Active fluticasone propionate (FLONASE) 50 mcg/spray [place], Suspension nasal inhalerIndicatio ns:Allergic rhinitis, unspecified seasonality, [...] on file Legal Sex Female 10:12 AM IT INFRASTRUCTURE MANAGER Gender Identity Not on file Sexual Orientation Not on file Last Filed Vital Signs Vital Sign Reading Time Taken Comments Blood Pressure 100/70 05/24/2024 11:10 AM IT INFRASTRUCTURE MANAGER Pulse 100 05/24/2024 11:10 AM IT INFRASTRUCTURE MANAGER Temperature 36.6 C (97.9 F) 05/24/2024 11:10 AM IT INFRASTRUCTURE MANAGER Respiratory Rate - - Oxygen Saturation 99% 05/24/2024 11:10 AM IT INFRASTRUCTURE MANAGER Inhaled Oxygen Concentration - - Weight 85.7 kg (189 lb) 05/24/2024 11:10 AM IT INFRASTRUCTURE MANAGER Height 162.6 cm (5' 4) 05/24/2024 11:10 AM IT INFRASTRUCTURE MANAGER Body Mass Index 32.44 05/24/2024 11:10 AM IT INFRASTRUCTURE MANAGER Plan of Treatment Upcoming Encounters Date Type Department Care Team (Late st Contact Info) Description 05/24/2025 10:00 AM IT INFRASTRUCTURE MANAGER Office Visit [facility] Internal Medicine [facility] [address] [facility] [address] [place] [address] Shirin Marie FNP [address] [facility] [address] [place] [address] Health Maintenance Due Date Last Done Comments HPV VACCINES (1 - 3-dose series) 2013 DTAP/TDAP/TD VACCINES (1 - Tdap) 2017 HEPATITIS B VACCINES (1 of 3 - 19+ 3-dose series) 06/18 CERVICAL CANCER SCREENING 07/07/2019 HPV/Cotest (21-29) 07/07/2019 PAP SMEAR 07/07/2019 Preventative Visit- Commercial 04/19/2024 INFLUENZA VACCINE (#1) 2024 05/24/2024 Insurance AETNA CHOICE POS II Care Teams Correctional Substance Abuse Counselor Relationship Specialty [place] [id number] [address] PCP - General Internal Medicine 05/24/24
--- OUTSIDE RECORDS SUMMARY | 2024-11-13 09:25 | XMS_ITS | Clinical Summary ---
Author Organization [facility] Address [address] [place] [address] Care Team Providers Care Furnace Helper Name Role Phone Unavailable Primary Care Provider Unavailabl e Source Comments [facility],non-owned Affiliates and Associated Physician Practices is amultiple site organization consisting of ambulatory clinics and hospital sitesin [place], [place], [place] and [place]. This disclosure is being madepursuant to the Care Everywhere program and may not contain all information available regarding this patient. Last updated 18.[facility] Allergies No known active allergies Medications * [...]
[2024-11-13 09:39] LABS: Glucose Fasting Gestational 91 mg/dL (>/=95)
[2024-11-13 11:29] LABS: Glucose 1 Hour Gest 179 mg/dL (>/=180)
[2024-11-13 12:15] LABS: Glucose 2 Hour Gest 182 mg/dL (>/= 155)
[2024-11-13 13:43] LABS: Glucose 3 Hour Gest 112 mg/dL (>/=140)
== END 2025-02-11 23:59 | disposition home or self-care (01) ==
LOC: ANHLAB 09:07
PROVIDERS: Referring Provider Obstetrics & Gynecology; Visit Provider Student in an Organized Health Care Education/Training Program
DX: Z29.13 Encounter for prophylactic Rho(D) immune globulin (principal); O36.0190 Maternal care for anti-D [Rh] antibodies, unspecified trimester, not applicable or unspecified; Z3A.00 Weeks of gestation of pregnancy not specified
CPT/HCPCS: 36415; 82951; 82952; 85461; 86850; 86900; 86901; 90384; 96372; J2790

== ENCOUNTER 2024-12-05 09:58 | Observation (INO) | payer OTHER, SELFPAY ==
--- OUTSIDE RECORDS SUMMARY | 2009-09-03 10:00 | XMS_ITS | Continuity of Care Document ---
Author Organization [facility] [place] Address [address] [place] [address] Phone Care Team Providers Care Well Blower Name Role Phone Quigley OD, Geovanny Unavailable Unavailable Procedures Procedure Date Eye Exam, New Patient Refraction Advance Directives Directive Yes / No Effective Date File Name No Information Encounters Encounter Description Practice Location Reason(s) For Visit Diagnoses Date Provider Providers Copied on Encounter [facility], [address], [place], [place], [address], [place] tel:[phone] SEC [facility] No Information 8-201 0 Quigley OD Geovanny. [address] [facility] , [address], [place], [address], [place]. tel:[phone] Family History Family Member Type Diagnosis Age [...]
--- NOTE | ~2024-12-05 | US_ITS ---
EXAMINATION: US OB BPP wo non-stress DATE: 12/05/2024 12:33 INDICATION: Assess biophysical profile and amniotic fluid index during third trimester . TECHNIQUE: Real-time pelvic ultrasound was performed. The interpreting radiologist was not present for the study. COMPARISON: None. FINDINGS: There is a single living fetus in vertex presentation. The placenta is fundal and not low-lying. heart rate is 141 beats per minute (bpm). Normal amniotic fluid index of 10.1 cm (5th%-95%: 8.8-23.8 cm at 31 weeks estimated gestational age) Biophysical profile performed by the technologist: breathing (30 sec sustained breathing in 30 minutes): 2 out of 2 movement (3 gross body movements in 30 minutes): 2 out of 2 tone (one episode of nddpyxa-wcidqshfe-kencpxl limb movement): 2 out of 2 Amniotic fluid pocket (2 cm): 2 out of 2 Total score: 8 out of 8 IMPRESSION: 1. Single living fetus in vertex presentation with heart rate of 141 bpm. 2. Biophysical profile 8 out of 8. 3. Normal amniotic fluid index of 10.1 cm. Reviewed, dictated and finalized at location A.
--- NOTE | 2024-12-05 09:58 | OBADM ---
This patient, Ailyn Prather, admitted to the OB room OB Post 115 for observation. Patient/family oriented to hospital policies and general routines including ID bracelet, bed and alarms, visiting hours, pain management, procedures, bathroom and other care routines, personal items, smoking policy, room service/diet, and visiting hours. Patient/Family are encouraged to report perceived risks to care and to ask questions if they do not understand what they are told or what they should do.
--- OUTSIDE RECORDS SUMMARY | 2024-12-05 10:29 | XMS_ITS | Clinical Summary ---
Author Organization [facility] Address [address] [place] [address] Care Team Providers Care Business Systems Advisor Name Role Phone Ankur Vanegas MD Primary Care Provider [phone] Allergies No known active allergies Medications atomoxetine (STRATTERA) 10 mg capsule 5 Active escitalopram oxalate (LEXAPRO) 10 mg tablet TAKE 1 Tablet BY MOUTH DAILY AT 7am 5 Active naltrexone (DEPADE) 50 mg tablet TAKE 1 Tablet BY MOUTH DAILY AT 7am 5 Active fluticasone propionate (FLONASE) 50 mcg/spray [place], Suspension nasal inhalerIndicatio ns:Allergic rhinitis, unspecified seasonality, [...] Encounters Date Type Department Care Team Description 11/22/2024 External Device Data STL ABSTRACTION Provider, Abstract 11/21/2024 External Device Data ST[facility] ABSTRACTION Provider, Abstract 11/01/2024 External Device Data [facility] ABSTRACTION Provider, [...] on file Legal Sex Female 10:12 AM HOME HEALTH TRAVEL OT Gender Identity Not on file Sexual Orientation Not on file Last Filed Vital Signs Vital Sign Reading Time Taken Comments Blood Pressure 100/70 05/24/2024 11:10 AM HOME HEALTH TRAVEL OT Pulse 100 05/24/2024 11:10 AM HOME HEALTH TRAVEL OT Temperature 36.6 C (97.9 F) 05/24/2024 11:10 AM HOME HEALTH TRAVEL OT Respiratory Rate - - Oxygen Saturation 99% 05/24/2024 11:10 AM HOME HEALTH TRAVEL OT Inhaled Oxygen Concentration - - Weight 85.7 kg (189 lb) 05/24/2024 11:10 AM HOME HEALTH TRAVEL OT Height 162.6 cm (5' 4) 05/24/2024 11:10 AM HOME HEALTH TRAVEL OT Body Mass Index 32.44 05/24/2024 11:10 AM HOME HEALTH TRAVEL OT Plan of Treatment Upcoming Encounters Date Type Department Care Team (Late st Contact Info) Description 05/24/2025 10:00 AM HOME HEALTH TRAVEL OT Office Visit [facility] Internal Medicine [facility] [address] [facility] [address] [place] [address] Shirin Marie FNP [address] [facility] [address] [place] [address] Health Maintenance Due Date Last Done Comments HPV VACCINES (1 - 3-dose series) 2013 DTAP/TDAP/TD VACCINES (1 - Tdap) 2017 HEPATITIS B VACCINES (1 of 3 - 19+ 3-dose series) 06/18 CERVICAL CANCER SCREENING 07/07/2019 HPV/Cotest (21-29) 07/07/2019 PAP SMEAR 07/07/2019 Preventative Visit- Commercial 04/19/2024 INFLUENZA VACCINE (#1) 2024 05/24/2024 Insurance AETNA CHOICE POS II Care Teams Business Systems Advisor Relationship Specialty [place] [address] [id number] PCP - General Internal Medicine 05/24/24
--- OUTSIDE RECORDS SUMMARY | 2024-12-05 10:29 | XMS_ITS | Clinical Summary ---
Author Organization [facility] Address [address] [facility] [place] [address] Care Team Providers Care Paving Rammer Name Role Phone Unavailable Primary Care Provider Unavailabl e Source Comments [facility],non-owned Affiliates and Associated Physician Practices is amultiple site organization consisting of ambulatory clinics and hospital sitesin [place], [place], [place] and [place]. This disclosure is being madepursuant to the Care Everywhere program and may not contain all information available regarding this patient. Last updated 18.[facility] Allergies No known active allergies Medications * [...]
[2024-12-05 10:35] VITALS: BMI 37.5
[2024-12-05 10:38] VITALS: TEMP 36.8
[2024-12-05 10:42] VITALS: BP 109/64; PULSE 96
[2024-12-05 10:46] VITALS: BP 112/59; PULSE 85
[2024-12-05 11:01] VITALS: BP 104/60; PULSE 90
[2024-12-05 11:16] VITALS: BP 112/49; PULSE 87
[2024-12-05 11:24] LABS: Add Urine Microscopic? YES; Appearance Urine Cloudy (Clear); Glucose Urine UA Negative (Negative); Leukocyte Esterase Ur Trace LEU/UL (Negative); Nitrate Urine Negative (Negative); Specific Grav Ur 1.012 (1.001-1.035)
[2024-12-05 11:31] VITALS: BP 106/63; PULSE 90
[2024-12-05 11:33] LABS: Non Pathogenic Casts 0-2
[2024-12-05] MEDS: NITROFURANTOIN MONOHYD MACROCR 100 MG CAP PO (12:57)
--- NOTE | 2024-12-06 08:12 | PM.OBTRLD ---
OB - Triage/Final Diagnosis Visit Information Comments/Additional reasons for admission: I have assessed the risk for this patient, Ailyn Prather, and determined that she would benefit from observation care. Evaluation Laboratory results: Laboratory Tests 12/05/24 10:23 Urine Color Yellow Urine Appearance Cloudy H Urine pH 7.0 Ur Specific [place] 1.012 Urine Protein Negative Urine Glucose (UA) Negative Urine Ketones Negative Ur Blood (Man) Negative Urine Nitrate Negative Urine Bilirubin Negative Urine Urobilinogen 0.2 Ur Leukocyte Esterase Trace H Urine RBC 0-2 Urine WBC 6-10 H Ur Squamous Epith Cells Moderate Urine Bacteria 2+ H Urine Casts 0-2 Vital signs: Vital Signs - 24 hr 12/05/24 10:35 12/05/24 10:38 12/05/24 10:42 Temperature 98.2 F Pulse Rate 96 Blood Pressure 109/64 Oxygen Delivery Room Air 12/05/24 10:46 12/05/24 11:01 12/05/24 11:16 Temperature Pulse Rate 85 90 87 Blood Pressure 112/59 L 104/60 112/49 L Oxygen Delivery 12/05/24 11:31 Temperature Pulse Rate 90 Blood Pressure 106/63 Oxygen Delivery Final Diagnosis (1) Abdominal pain affecting : Code(s): O26.899 - Other specified related conditions, unspecified trimester; R10.9 - Unspecified abdominal pain Status: Acute
== END 2024-12-05 13:05 | disposition home or self-care (01) ==
PROVIDERS: Admitting Provider Obstetrics & Gynecology; Visit Provider Obstetrics & Gynecology
DX: O26.893 Other specified pregnancy related conditions, third trimester (principal); R10.9 Unspecified abdominal pain; Z3A.31 31 weeks gestation of pregnancy
CPT/HCPCS: 76819; 81001; 87086; A9270; G0378; G0379

== ENCOUNTER 2024-12-19 08:20 | Emergency (ER) | payer OTHER, SELFPAY ==
[2024-12-19 08:28] VITALS: BP 111/59; PULSE 101; RESP 20; TEMP 36.5; O2SAT 100
--- NOTE | 2024-12-19 08:39 | ED_ITS ---
HPI - URI/Sore Throat General Chief Complaint: Upper Respiratory Infection Stated Complaint: Flu Like Source: patient and RN notes reviewed Mode of arrival: ambulatory Limitations: no limitations History of Present Illness HPI Narrative: 24-year-old female presented for complaint of 3 days of cough, nasal congestion, and drainage. Endorses diarrhea at onset has resolved. Pt spoke with Obgyn, who advised Tylenol for symptoms. denies shortness of breath, wheezing nausea, vomiting, fevers or chills. Endorses normal movement. pt 33 weeks gestation MD elicited complaint: cough Related Data Home Medications ?Medication ?Instructions ?Recorded ?Confirmed ?Last Taken ?Type docosahexaenoic acid 200 mg mg PO 06/21/24 12/06/24 Un known History capsule ( DHA) Allergies Allergy/AdvReac Type Severity Reaction Status Date / Time No Known Allergies Allergy Verified 12/19/24 08:22 Review of Systems Review of Systems: CONSTITUTIONAL: denies malaise, body aches, chills, sweats, fever EYES: Denies visual changes, redness, or discharge ENT: Reports rhinorrhea, congestion, denies sinus pain, otalgia, sore throat CARDIOVASCULAR: Denies chest pain, palpitations, edema RESPIRATORY: Reports cough, post nasal drainage. Denies dyspnea GASTROINTESTINAL: Denies abdominal pain, nausea, vomiting, diarrhea SKIN: Denies rash or itching NEUROLOGIC: Denies headache PMFSH Past Medical History Medical History Hx of substance abuse Threatened Pancreatitis History of alcohol abuse Family History Family History Grandparent Diabetes mellitus Social History Social History Smoking status: Current every day smoker Tobacco type: cigarettes and e-cigarettes/vaping Second hand tobacco smoke exposure: Yes Alcohol intake: former Alcohol use details: STOPPED 05/2023 Substance use: former Substance use type: crack/cocaine, sedatives, painkillers and methamphetamine Do You Feel Safe in your Home?: Yes Lack of Transportation: No Lack of Food: Never True Current Housing: I Have Housing Concerned About Future Housing: No Difficulty Paying Gas/Electric Bills: No Difficulty Paying for Meds: No Currently Unemployed: No Education: High School Diploma/GED Difficulty w/ Childcare or Family Care: No Living arrangements: with family Occupation/Education: occupation Additional occupation/education comments: [employer] Gender identity (if verbalized by the patient): Female Sexual Orientation (if Verbalized by the Patient): Straight or Heterosexual Exam Narrative: GENERAL: well-appearing EYES: conjunctivae clear ENT: Mucous membranes moist. TM pearly kunz with dull light reflex bilaterally; no tragal tenderness. Oropharynx not erythematous without lesions or exudate, no drooling, no hoarseness, no trismus, uvula midline. No tripod positioning, muffled voice, soft palate or pharyngeal wall bulging NECK: Supple. No lymphadenopathy CHEST: Clear to auscultation, breath sounds equal. No wheezing, rhonchi, rales, or stridor. No respiratory distress, speaks in full sentences. HEART: Regular rate and rhythm. No murmur heard. ABD: gravid SKIN: Warm, dry, no rash. NEURO: Alert and oriented x3. PSYCH: Normal mood and affect Course Course Emergency Course: Patient is aware of diagnosis, understands and agrees to treatment plan. Anticipatory guidance given. Patient agrees to follow-up as directed and is aware of reasons to seek care at the emergency department. Portions of this record may have been created with voice recognition software Level of Care: Express Care Visit Vital Signs Vital signs: Vital Signs Temperature 97.7 F 12/19/24 08:28 Pulse Rate 101 H 12/19/24 08:28 Respiratory Rate 20 12/19/24 08:28 Blood Pressure 111/59 L 12/19/24 08:28 Pulse Oximetry 100 12/19/24 08:28 Oxygen Delivery Room Air 12/19/24 08:28 Temperature 97.7 F 12/19/24 08:28 Pulse Rate 101 H 12/19/24 08:28 Respiratory Rate 20 12/19/24 08:28 Blood Pressure 111/59 L 12/19/24 08:28 Pulse Oximetry 100 12/19/24 08:28 Oxygen Delivery Room Air 12/19/24 08:28 reviewed MDM - URI/Sore Throat MDM Narrative Medical decision making narrative: Discussed physical exam findings, negative COVID flu. Advised supportive measures and signs/symptoms to go to the ER. Pt is appropriate for outpt treatment and f/u. Differential Diagnosis Differential diagnosis: Likely upper respiratory infection, sinusitis and viral infection Lab Data Labs: Lab Results 12/19/24 Range/Units 08:43 POC Influenza A Ag Negative (Negative) POC Influenza B Ag Negative (Negative) POC SARS CoV-2 Ag Negative (Negative) Discharge Plan Discharge Clinical Impression: Upper respiratory infection Patient Disposition: Home Condition: Stable Instructions: Antibiotic Form, Upper Respiratory Infection (ED) Additional Instructions: Flu and COVID negative Recommend saline mist and Zyrtec (or Claritin/Gretta) discussed with your OBGYN any [id number] medication you want to take Tylenol 1000mg every 8 hours as needed for pain Symptomatic treatment includes: rest, fluids, and increase humidity of the air at home. Follow up with your primary care provider in 1 week. Go to the ER for worsening symptoms or concerns. Patient Language: American Prescriptions: No Action ferrous sulfate [FeroSul] 325 mg (65 mg iron) tablet 325 mg PO DAILY Qty: 90 0RF DHA 200 mg capsule PO Follow-up/Referrals: PHYSICIAN,PHYSICAL PLANT MANAGER [Primary Care Provider, Internal Medicine] Stand Alone Forms: Work/School Release IP Time of Disposition: 09:04
[2024-12-19 08:45] LABS: EDCOVIDSCREEN Negative (Negative); EDINFLUASCREEN Negative (Negative); EDINFLUBSCREEN Negative (Negative)
== END 2024-12-19 09:08 | disposition home or self-care (01) ==
PROVIDERS: Emergency Provider Nurse Practitioner Family
DX: O99.513 Diseases of the respiratory system complicating pregnancy, third trimester (principal); J06.9 Acute upper respiratory infection, unspecified; Z3A.33 33 weeks gestation of pregnancy; Z20.822 Contact with and (suspected) exposure to COVID-19; O99.333 Smoking (tobacco) complicating pregnancy, third trimester; F17.210 Nicotine dependence, cigarettes, uncomplicated; F17.290 Nicotine dependence, other tobacco product, uncomplicated
CPT/HCPCS: 87426; 87804; 99212; G0463

== ENCOUNTER 2025-01-08 11:35 | Outpatient (CLI) | payer OTHER, SELFPAY ==
--- OUTSIDE RECORDS SUMMARY | 2009-09-03 10:00 | XMS_ITS | Continuity of Care Document ---
Author Organization [facility] [place] [address] [place] [address] Phone Care Team Providers Care Instructor Warper Name Role Phone Quigley OD, Geovanny Unavailable Unavailable Procedures Procedure Date Eye Exam, New Patient Refraction Advance Directives Directive Yes / No Effective Date File Name No Information Encounters Encounter Description Practice Location Reason(s) For Visit Diagnoses Date Provider Providers Copied on Encounter Located within [facility], [address], [place], [place], [id number], [place] tel:[phone] SEC [facility] No Information 8-201 0 Quigley OD Geovanny. [address] , [address], [place], [address], [place]. tel:[phone] Family History Family Member Type Diagnosis Age At Onset No Information Payers Payer name Insurance type Covered alliance party ID Authoriza tion(s) No Information Social History Type Description Quantity Date Captured Comments Sex Female Smoking Status No Information Chief Complaint And Reason For Visit No Information Reason For Referral Reason For Referral No Information History Of Present Illness Encounter Date Complaint History Of Prese nt Illness No Information Functional Status Date Functional Assessmen t No Information Instructions Date Instruction Additional Infor mation No Information Assessments Type Assessment Date No Information Patient Care Teams Name Effective Dates (start - stop) Status Members No Information
--- OUTSIDE RECORDS SUMMARY | 2025-01-08 12:40 | XMS_ITS | Clinical Summary ---
Author Organization [facility] Address [address] [facility] [place] [address] Care Team Providers Care Poultry Dressing Worker Name Role Phone Unavailable Primary Care Provider Unavailabl e Source Comments [facility],non-owned Affiliates and Associated Physician Practices is amultiple site organization consisting of ambulatory clinics and hospital sitesin [place], [place], [place] and [place]. This disclosure is being madepursuant to the Care Everywhere program and may not contain all information available regarding this patient. Last updated 18.[facility] Allergies No known active allergies Medications * [...] of 3 - 19+ 3-dose series) 2017 DEPRESSION SCREENING 04/19/2024 COVID-19 VACCINE (1 - 2023-2 5 season) 2024 INFLUENZA VACCINE (#1) 2024 ZOSTER VACCINE (1 [...]
--- OUTSIDE RECORDS SUMMARY | 2025-01-08 12:40 | XMS_ITS | Clinical Summary ---
Author Organization [facility] Address [address] [place] [address] Care Team Providers Care Fibreglass Lay Up Worker Name Role Phone Ankur Vanegas MD Primary Care Provider [phone] Allergies No known active allergies Medications atomoxetine (STRATTERA) 10 mg capsule 5 Active escitalopram oxalate (LEXAPRO) 10 mg tablet TAKE 1 Tablet BY MOUTH DAILY AT 7am 5 Active naltrexone (DEPADE) 50 mg tablet TAKE 1 Tablet BY MOUTH DAILY AT 7am 5 Active fluticasone propionate (FLONASE) 50 mcg/spray [place], Suspension nasal inhalerIndicatio ns:Allergic rhinitis, unspecified seasonality, [...] Date Smoking Tobacco: Every Day Cigarettes 0.3 10.6 Started: 05/24/2014 Smokeless Tobacco: Current Alcohol Use Standard Drinks/Week Comments Not Currently 0 (1 standard drink = 0.6 oz pur e alcohol) sober 3 months Comments No Sex and Gender Information Value Date Recorded Sex Assigned at Not on file Legal Sex Female 10:12 AM CREW DISPATCHER Gender Identity Not on file Sexual Orientation Not on file Last Filed Vital Signs Vital Sign Reading Time Taken Comments Blood Pressure 100/70 05/24/2024 11:10 AM CREW DISPATCHER Pulse 100 05/24/2024 11:10 AM CREW DISPATCHER Temperature 36.6 C (97.9 F) 05/24/2024 11:10 AM CREW DISPATCHER Respiratory Rate - - Oxygen Saturation 99% 05/24/2024 11:10 AM CREW DISPATCHER Inhaled Oxygen Concentration - - Weight 85.7 kg (189 lb) 05/24/2024 11:10 AM CREW DISPATCHER Height 162.6 cm (5' 4) 05/24/2024 11:10 AM CREW DISPATCHER Body Mass Index 32.44 05/24/2024 11:10 AM CREW DISPATCHER Plan of Treatment Upcoming Encounters Date Type Department Care Team (Late st Contact Info) Description 05/24/2025 10:00 AM CREW DISPATCHER Office Visit [facility] Internal Medicine [facility] [address] [facility] [address] [place] [address] Shirin Marie FNP [address] [facility] [address] [place] [address] Health Maintenance Due Date Last Done Comments HPV VACCINES (1 - 3-dose series) 2013 DTAP/TDAP/TD VACCINES (1 - Tdap) 2017 HEPATITIS B VACCINES (1 of 3 - 19+ 3-dose series) 06/18 CERVICAL CANCER SCREENING 07/07/2019 HPV/Cotest (21-29) 07/07/2019 PAP SMEAR 07/07/2019 Preventative Visit- Commercial 04/19/2024 INFLUENZA VACCINE (#1) 2024 Insurance AETNA CHOICE POS II Care Teams Fibreglass Lay Up Worker Relationship Specialty [place] [id number] [address] PCP - General Internal Medicine 05/24/24
[2025-01-08 12:50] LABS: Alanine Aminotransferase 12 U/L (6-35); Albumin Level 3.6 g/dL (3.5-5.1); Alkaline Phosphatase 98 U/L (38-126); Anion Gap 7 mmol/L (4-12); Aspartate Amino Transferase 22 U/L (14-36); Bilirubin,Total 0.3 mg/dL (0.2-1.3); Blood Urea Nitrogen 4 mg/dL (7-17); Calcium 9.7 mg/dL (8.4-10.2); Carbon Dioxide 22 mmol/L (22-30); Chloride 103 mmol/L (98-107); Estimated Glomerular Filt Rate > 60; Glucose 109 mg/dL (65-110); Potassium 4.1 mmol/L (3.4-5.0); Sodium 132 mmol/L (137-145); Total Protein 7.1 g/dL (6.3-8.2)
[2025-01-12 02:07] LABS: Total Bile Acids 2.0 umol/L (.)
== END 2025-01-08 11:36 | disposition home or self-care (01) ==
LOC: ANHLAB 11:36
PROVIDERS: Visit Provider Obstetrics & Gynecology
DX: O99.719 Diseases of the skin and subcutaneous tissue complicating pregnancy, unspecified trimester (principal); L29.9 Pruritus, unspecified; Z3A.00 Weeks of gestation of pregnancy not specified
CPT/HCPCS: 36415; 80053; 82542

== ENCOUNTER 2025-01-28 16:43 | Inpatient (IN) | payer OTHER, SELFPAY ==
--- OUTSIDE RECORDS SUMMARY | 2009-09-03 10:00 | XMS_ITS | Continuity of Care Document ---
Author Organization [facility] Address [address] [place] [address] Phone Care Team Providers Care Cadd Operator Name Role Phone Quigley OD, Geovanny Unavailable Unavailable Procedures Procedure Date Eye Exam, New Patient Refraction Advance Directives Directive Yes / No Effective Date File Name No Information Encounters Encounter Description Practice Location Reason(s) For Visit Diagnoses Date Provider Providers Copied on Encounter [facility], [address], [place], [place], [address], [place] tel:[phone] SEC [facility] No Information 8-201 0 Quigley OD Geovanny. [address] [facility] , [address], [place], [address], [place]. tel:[phone] Family History Family Member Type Diagnosis Age At Onset No Information Payers Payer name Insurance type Covered green party ID Authoriza tion(s) No Information Social [...]
[2025-01-28] VITALS (13 sets, daily range): BP systolic 97–127; BP diastolic 53–77; PULSE 89–115; TEMP 36.8; BMI 37.0
--- OUTSIDE RECORDS SUMMARY | 2025-01-28 16:50 | XMS_ITS | Clinical Summary ---
Author Organization [facility] Address [address] [facility] [place] [address] Care Team Providers Care Fulfillment Associate Name Role Phone Unavailable Primary Care Provider Unavailabl e Source Comments [facility],non-owned Affiliates and Associated Physician Practices is amultiple site organization consisting of ambulatory clinics and hospital sitesin [place], [place], [place] and [place]. This disclosure is being madepursuant to the Care Everywhere program and may not contain all information available regarding this patient. Last updated 18.[facility] Allergies No known active allergies Medications * [...]
--- OUTSIDE RECORDS SUMMARY | 2025-01-28 16:50 | XMS_ITS | Clinical Summary ---
Author Organization [facility] Address [address] [place] [address] Care Team Providers Care Medical Technologist Hematology Name Role Phone Ankur Vanegas MD Primary Care Provider [phone] Allergies No known active allergies Medications atomoxetine (STRATTERA) 10 mg capsule 5 Active escitalopram oxalate (LEXAPRO) 10 mg tablet TAKE 1 Tablet BY MOUTH DAILY AT 7am 5 Active naltrexone (DEPADE) 50 mg tablet TAKE 1 Tablet BY MOUTH DAILY AT 7am 5 Active fluticasone propionate (FLONASE) 50 mcg/spray [place], Suspension nasal inhalerIndicatio ns:Allergic rhinitis, unspecified seasonality, [...] Encounters Date Type Department Care Team Description 01/16/2025 External Device Data [facility] ABSTRACTION Provider, Abstract 11/22/2024 External Device Data [facility] ABSTRACTION Provider, [...] Date Smoking Tobacco: Every Day Cigarettes 0.3 10.7 Started: 05/24/2014 Smokeless Tobacco: Current Alcohol Use Standard Drinks/Week Comments Not Currently 0 (1 standard drink = 0.6 oz pur e alcohol) sober 3 months Comments No Sex and Gender Information Value Date Recorded Sex Assigned at Not on file Legal Sex Female 10:12 AM RESEARCH AND DEVELOPMENT TECHNICIAN Gender Identity Not on file Sexual Orientation Not on file Last Filed Vital Signs Vital Sign Reading Time Taken Comments Blood Pressure 100/70 05/24/2024 11:10 AM RESEARCH AND DEVELOPMENT TECHNICIAN Pulse 100 05/24/2024 11:10 AM RESEARCH AND DEVELOPMENT TECHNICIAN Temperature 36.6 C (97.9 F) 05/24/2024 11:10 AM RESEARCH AND DEVELOPMENT TECHNICIAN Respiratory Rate - - Oxygen Saturation 99% 05/24/2024 11:10 AM RESEARCH AND DEVELOPMENT TECHNICIAN Inhaled Oxygen Concentration - - Weight 85.7 kg (189 lb) 05/24/2024 11:10 AM RESEARCH AND DEVELOPMENT TECHNICIAN Height 162.6 cm (5' 4) 05/24/2024 11:10 AM RESEARCH AND DEVELOPMENT TECHNICIAN Body Mass Index 32.44 05/24/2024 11:10 AM RESEARCH AND DEVELOPMENT TECHNICIAN Plan of Treatment Upcoming Encounters Date Type Department Care Team (Late st Contact Info) Description 05/24/2025 10:00 AM RESEARCH AND DEVELOPMENT TECHNICIAN Office Visit [facility] Internal Medicine [facility] [address] [facility] [address] [place] [address] Shirin Marie FNP [address] [facility] [address] [place] [address] Health Maintenance Due Date Last Done Comments HPV VACCINES (1 - 3-dose series) 2013 DTAP/TDAP/TD VACCINES (1 - Tdap) 2017 HEPATITIS B VACCINES (1 of 3 - 19+ 3-dose series) 06/18 CERVICAL CANCER SCREENING 07/07/2019 HPV/Cotest (21-29) 07/07/2019 PAP SMEAR 07/07/2019 Preventative Visit- Commercial 04/19/2024 INFLUENZA VACCINE (#1) 2024 Insurance AETNA CHOICE POS II Care Teams Medical Technologist Hematology Relationship Specialty Start [place] [address] [address] PCP - General Internal Medicine 05/24/24
[2025-01-28] MEDS: DINOPROSTONE 10 MG VAG INSERT VAGINAL (17:40)
[2025-01-28 17:47] LABS: Hematocrit 34.3 % (37.0-47.0); Hemoglobin 11.8 g/dL (12.0-15.0); Immature Granulocyte Percent A 0.5 % (0-0.5); Lymphocytes Absolute Auto 2.22 K/mm3 (0.9-3.2); Mean Corpuscular HGB Conc 34.4 g/dl (32-36); Mean Corpuscular Hemoglobin 31.1 pg (26-34); Mean Corpuscular Volume 90.3 fl (80-100); Nucleated Red Blood Cells Absolute Auto 0.000 K/mm3 (0.0-0.012); Nucleated Red Blood Cells Perc 0.0 % (0.0-0.2); Platelet Count Result 217 k/mm3 (150-375); Red Blood Count 3.80 M/mm3 (4.2-5.4); White Blood Count 12.7 K/mm3 (4.5-10.0)
--- NOTE | 2025-01-28 18:30 | LDADM ---
This patient, Ailyn Prather, was admitted to Labor/Delivery/Recovery 109 on 01/28/25 at 16:43. Plans for labor, pain management and were discussed with patient. Patient/family oriented to hospital policies and general routines including ID bracelet, bed and alarms, visiting hours, pain management, procedures, bathroom and other care routines, personal items, smoking policy, room service/diet and guest tray routines, security routines, and visiting hours. Patient/Family are encouraged to report perceived risks to care and to ask questions if they do not understand what they are told or what they should do. See [facility] for further documentation.
[2025-01-28 18:31] LABS: Syphilis IgG/IgM Antibody Non-Reactive (Nonreactive)
[2025-01-29] VITALS (158 sets, daily range): BP systolic 34–136; BP diastolic 24–104; PULSE 65–113; TEMP 36.4–36.9; O2SAT 94–100
[2025-01-29] MEDS: LACTATED RINGERS 1,000 ML 125 ML IV CONT ×3 (07:18→18:38)
[2025-01-29] MEDS: OXYTOCIN 30 UNITS/NS 500 ML 30 UNITS/500 ML BAG 6 UNITS IV CONT (07:18)
[2025-01-29] MEDS: fentaNYL CITRATE INJ (*CRX) 100 MCG/2 ML VIAL IV PUSH ×3 (11:39→16:21)
--- NOTE | 2025-01-29 17:24 | P.PNAN_ITS ---
Anes - Initial Pre Proc Eval Procedure: labor epidural Date/Time: 01/29/25 17:24 Surgeon: Dangelo Matta MD Pre Op Diagnosis: Labor pain Patient Data Age: 24 Gender: F Height: 1.63 m Weight: 98 kg Last Vital Signs Temp 36.6 C 01/29/25 15:15 Pulse 92 01/29/25 17:15 BP 127/61 01/29/25 17:15 O2 Del Method Room Air 01/29/25 06:38 Allergies Allergy/AdvReac Type Severity Reaction Status Date / Time No Known Allergies Allergy Verified 01/29/25 06:37 Home Medications ?Medication ?Instructions ?Recorded ?Confirmed ?Type docosahexaenoic acid 200 mg 200 mg PO DAILY 06/21/24 0 01/10/25 History capsule ( DHA) ferrous sulfate 325 mg (65 mg 325 mg PO DAILY #90 tabs 11/08/24 01/10/25 Rx iron) tablet (FeroSul) Laboratory Tests 01/28/25 17:08 WBC 12.7 H K/mm3 (4.5-10.0) RBC 3.80 L M/mm3 (4.2-5.4) Hgb 11.8 L g/dL (12.0-15.0) Hct 34.3 L % (37.0-47.0) MCV 90.3 fl (80-100) MCH 31.1 pg (26-34) MCHC 34.4 g/dl (32-36) RDW 13.6 % (11.5-14.5) Plt Count 217 k/mm3 (150-375) MPV 11.1 H fl (7.4-10.4) Immature Gran % (Auto) 0.5 % (0-0.5) Neut % (Auto) 75.2 H % (45.5-73.1) Lymph % (Auto) 17.5 L % (18.3-44.2) Glynn % (Auto) 5.8 % (2.6-8.5) Eos % (Auto) 0.8 % (0-4.4) Baso % (Auto) 0.2 % (0.2-1.2) Lymph # (Auto) 2.22 K/mm3 (0.9-3.2) Glynn # (Auto) 0.7 H K/mm3 (0.1-0.6) Eos # (Auto) 0.1 K/mm3 (0-0.3) Baso # (Auto) 0.0 K/mm3 (0.0-0.1) Abs Immat Gran (auto) 0.06 H K/mm3 (0.00-0.031) Absolute Neuts (auto) 9.5 H K/mm3 (1.3-6.7) Absolute Nucleated RBC 0.000 K/mm3 (0.0-0.012) Nucleated RBC % 0.0 % (0.0-0.2) Syphilis IgG/IgM Ab Non-reactive (Nonreactive) Blood Type O Negative Antibody Screen Positive Antibody Identification Passive Due to RH Imm Glob Antigen Identification Cancelled DONNA, IgG Interpret Not Performed DONNA, Poly Interpret Negative DONNA, Complement Interp Not Performed Patient hx anesthesia problems: none Family hx anesthesia problems: none Results Review: All pre-operative results and documents have been reviewed as part of the pre- operative evaluation. [facility] Past Medical History Medical History Hx of substance abuse Threatened Pancreatitis History of alcohol abuse Family History Family History Grandparent Diabetes mellitus Father Diabetes mellitus Social History Social History Smoking status: Current every day smoker Tobacco type: cigarettes and smokeless tobacco Second hand tobacco smoke exposure: Yes Alcohol intake: former Alcohol use details: STOPPED 05/2023 Substance use: current Substance use type: crack/cocaine, sedatives, painkillers and methamphetamine Other substance usage details: clean from alcohol and meth/cocaine x3 years Do You Feel Safe in your Home?: Yes Lack of Transportation: No Lack of Food: Never True Current Housing: I Have Housing Concerned About Future Housing: No Difficulty Paying Gas/Electric Bills: No Difficulty Paying for Meds: No Currently Unemployed: No Education: High School Diploma/GED Difficulty w/ Childcare or Family Care: No Living arrangements: with family Occupation/Education: occupation Additional occupation/education comments: [employer] Gender identity (if verbalized by the patient): Female Sexual Orientation (if Verbalized by the Patient): Straight or Heterosexual Spiritual care concerns: No Anes - Eval Final PreProcedure Day of Procedure 01/29/25 17:24 Heart: regular rate and rhythm Lungs: clear to auscultation and normal air movement Airway: Mallampati scale class II Neurological: alert and oriented ASA classification: III Anesthetic plan: proceed Anesthesia type and monitoring: regional epidural and standard monitoring Results Review: All pre-operative results and documents have been reviewed as part of the pre- operative evaluation. Informed Consent: The patient's anesthetic plan and its attendant risks and benefits were discussed with the patient/family/POA. Questions were solicited and answers provided to the satisfaction of the patient/family/POA.
[2025-01-30] VITALS (119 sets, daily range): BP systolic 86–170; BP diastolic 24–142; PULSE 65–207; RESP 14–18; TEMP 36.6–37.4; O2SAT 78–100
[2025-01-30] MEDS: LACTATED RINGERS 1,000 ML 125 ML IV CONT (02:37)
--- NOTE | 2025-01-30 03:56 | WPDHPUPDATE1 ---
History and Physical Update Update Date/Time: 01/30/25 03:56 History and Physical has been reviewed, including an updated exam of the patient. There are NO changes in the patient's condition. Risks, benefits, and alternatives have been discussed and questions answered. Patient agrees to proceed with procedure. -h/o miscarriage -RH negative will need rhogam -h/o substance abuse- currently sober. -depression/anxiety-no meds -tobacco use A/P: admit to L&D routine admission orders cervidil IOL continous EFM
--- NOTE | 2025-01-30 05:54 | PM.OBPRVD ---
OB - Vaginal Delivery Note Procedure Delivery date: 01/30/25 Induction method: Per Cervidil Protocol Delivery augmentation: Rupture of Membranes and Pitocin Delivery monitor: External FHT and Internal Uterine Route of delivery: Episiotomy description: None Laceration Description: Perineal - 1st Degree Delivery repair: vicryl Specimen: No Quantitative Blood Loss (ml): 150 Anesthesia type: Epidural Disposition: Floor Complications: No immediate complications Narrative: Patient pushed for a spontaneous vaginal delivery. The fetus was delivered atraumatically and placed on the maternal abdomen. The cord was clamped and cut after 1 minute of life. The cord was double clamped and cut and a segment of cord was collected for cord gases. Cord blood was collected for blood type and Coomb's testing. The placenta delivered spontaneously and was noted to be intact. The perineum was inspected and a 1st degree perineal laceration was noted. The laceration was repaired with 3-0 vicryl in a running fashion. The fundus was noted to be firm and good hemostasis was noted. The mom and infant were stable in the delivery room. Baby Date of : 01/30/25 Gestational Age by Date: 39 Infant gender: Male Weight (pounds): 8 Weight (ounces): 10 presentation: vertex position: Right Occiput Anterior Placenta delivery description: Spontaneous Cord Vessel Description: 3 Vessels
[2025-01-30] MEDS: OXYTOCIN 30 UNITS/NS 500 ML 30 UNITS/500 ML BAG 125 UNITS IV CONT (06:34)
[2025-01-30] MEDS: IBUPROFEN 600 MG TABLET PO ×3 (08:04→20:57)
[2025-01-30] MEDS: MULTIVIT/MIN/PREN/FOL AC/IRON TABLET 1 TAB PO (08:04)
[2025-01-30] MEDS: WITCH HAZEL 40 PADS 1 PAD TOPICAL (08:41)
[2025-01-30] MEDS: BENZOCAINE 20% AER SPR (*SP) 56 GM CAN 1 SPRAY TOPICAL (08:41)
--- NOTE | 2025-01-30 09:40 | PC.NURSE ---
Introductions were made, then consulted with patient to assess needs related to . Mother led the conversation with her?plans to feed?her and the?experience so far. Encouraged understanding of the benefits of skin to skin (demonstrating unwrapping infant and placing upright on her chest), stimulating with massage touch, changing positions to encourage wakefulness, how to watch for early feeding cues, responsive feeding, feeding on demand (aiming for 8-12 times in 24 hours, about every 2-3 hours), milk production, building/maintaining a milk supply, duration of feeding, signs of adequate intake/output and how to record on the feeding sheet. Mother works well with her infant with encouragement and education. Reviewed positioning and ear, shoulder, hip alignment, supporting the breast to facilitate a deep latch, asymmetrical latch (off-center), leading with the chin with a big, open, wide gape and body close to mother. Infant latched optimally to the [right] breast in [football] position. Education given to the mother of how to visualize the suckling (with good rocking jaw motion), swallows (dropping of the lower jaw) and how to listen for drinking at the breast (the ka sound). was [able] to maintain latch without pain to mother protecting the nipple with optimal positioning and latching. Reviewed comfort measures of healing with a warm, wet washcloth to rinse breast, then leave open to air-dry, good handwashing when or touching the breast/nipples to prevent infection. Mother voiced understanding of skin to skin, stimulating with massage touch, responsive feedings, hand expressed colostrum, talking to to encourage if it has been 2 -2.5 hours since the start of the last , to call if infant does not latch, or if there is discomfort with . Resources used for education were facilitated with the [visual educational handouts/ tool/mom and baby guide], Inpatient/outpatient resources provided with business card, feeding sheet, name written on the communication board, and the mom/baby guide. Parents voiced understanding of information, demonstrated learning and will call if there is a request for assistance. Reported to the Primary RN.
--- NOTE | 2025-01-30 10:17 | OBPPTRN ---
Patient transferred to post room #286 via WC. Support person present. Oriented to unit, room, information board, rooming in, admission packet and security measures. Patient verbalizes understanding.
[2025-01-30] MEDS: ACETAMINOPHEN 325 MG TABLET 650 MG PO (13:51)
[2025-01-31 00:20] VITALS: BP 115/60; PULSE 86; RESP 15; TEMP 36.5; O2SAT 97
[2025-01-31] MEDS: IBUPROFEN 600 MG TABLET PO ×2 (05:45→19:47)
[2025-01-31 06:11] LABS: Hematocrit 32.1 % (37.0-47.0); Hemoglobin 10.5 g/dL (12.0-15.0)
[2025-01-31 07:20] VITALS: BP 107/63; PULSE 75; RESP 18; TEMP 36.7; O2SAT 100
--- NOTE | 2025-01-31 07:57 | PM.OBPNVD ---
OB - PN: Subj Subjective Date/time seen: 01/31/25 07:57 Patient comments: no complaints, pain well controlled and tolerating diet [place] feeding status: exclusively breast feeding Narrative: patient doing well this AM. No complaints. Pain is well controlled. She reports minimal bleeding. She is ambulating and voiding without difficulty. She is tolerating PO. She denies N/V, fever, chills. OB - PN: Obj Data Labs 01/31/25 06:03 Labs: Laboratory Results - last 24 hr 01/31/25 06:03 Hgb 10.5 L Hct 32.1 L Blood Type O Negative Antibody Screen Positive Antibody Identification Cancelled Antigen Identification Cancelled DONNA, IgG Interpret Cancelled DONNA, Poly Interpret Cancelled DONNA, Complement Interp Cancelled Screen Negative Baby's Blood Type O pos Baby's DONNA Negative Doses of RhIg Required 1 OB - PN A/P Plan day: 1 Plan: routine care Comments: patient doing well H/H stable desires circumcision, risks, benefits, alternatives discussed. continue routine care Time Spent With Patient Time: Total time spent is greater than 50% in coordination of care (as documented) at patient's floor/unit and/or counseling patient: Time with patient: less than 15 minutes Review of Systems Review of Systems: All systems reviewed & are unremarkable except as noted in HPI and below Exam Const: General: comfortable and no acute distress Resp: Effort & Inspection: normal respiratory effort Cardio: Rate: regular rate GI: GI Palp: Yes Soft to palpation and No Tenderness to palpation present (GI) Auscultation: normal bowel sounds Other: fundus firm and below umbilicus. Psych: Affect: normal affect
[2025-01-31] MEDS: MULTIVIT/MIN/PREN/FOL AC/IRON TABLET 1 TAB PO (09:36)
[2025-01-31] MEDS: RHO(D) IMMUNE GLOBULIN 300 MCG/2 ML SYRINGE IM (11:35)
--- NOTE | 2025-01-31 13:12 | PC.NURSE ---
Mother verbalizes she is able to independently latch with appropriate positioning and alignment. She denies any nipple discomfort and is responsively . Infant is currently meeting outcomes for weight, output, jaundice, blood sugar and feeding frequencies of 8-12 times in 24 hours. Mother declines any additional assistance or education at this time. Mother is encouraged to call for assistance if her infant doesn?t latch, pain with latching, questions or concerns. Mother voiced understanding of information shared along with the mom/baby guide for an additional resource. Reported to the Primary RN.
--- NOTE | 2025-01-31 16:11 | PCCCNOTE ---
Care Coordination: Met with pt. and GREGG Chamberlain at bedside. This is their first child. Pt. and Bulmaro currently live together. Pt. recently graduated out of the [facility] program and moved in with Bulmaro. Bulmaro also reports his own sobriety and past experience at the [facility]. Pt. reports she sees a behavioral health specialist at the [facility]. Encouraged pt. to establish with a PMD at the [facility] as well. Both report they have all equipment necessary for baby including a car seat, basinett, breast pump, bottles, clothing etc. Resources provided to pt. however she already plans to utilize [facility] services out of the [place] office and has been informed to contact the office when she gets home. Offered basket and they both declined this. Per RN the baby's umbilical cord is currently pending, this will take several days to result. Will follow up once test results come back. No urine drug test on mother completed. No urine test on baby. Pt. anticipates discharge tomorrow home.
[2025-01-31 19:45] VITALS: BP 110/65; PULSE 86; RESP 17; TEMP 36.9; O2SAT 99
[2025-02-01 07:55] VITALS: BP 117/71; PULSE 70; RESP 18; TEMP 37.4; O2SAT 99
[2025-02-01] MEDS: IBUPROFEN 600 MG TABLET PO (08:40)
[2025-02-01] MEDS: MULTIVIT/MIN/PREN/FOL AC/IRON TABLET 1 TAB PO (08:41)
--- NOTE | 2025-02-01 09:09 | PM.OBDSVD ---
DS: Admitting Diagnosis Discharge Date 02/01/25 Admitting Diagnosis intrauterine at term DS: Discharge Diagnosis Discharge Diagnosis (1) Normal vaginal delivery: Code(s): O80 - Encounter for full-term uncomplicated delivery Status: Acute OB - DS: Summary OB Procedures : None OB Procedures Intrapartum: Spontaneous Vag Delivery OB Procedures: : None Peripartum Data Laceration Description: Perineal - 1st Degree Episiotomy description: None Time Spent with Patient Time attestation: Total time spent providing and/or coordinating discharge services: DS: Data Data Completed and Pending Labs on day of discharge: Labs from last 24 hours 01/31/25 06:03 Blood Type O Negative Antibody Screen Positive Antibody Identification Cancelled Antigen Identification Cancelled DONNA, IgG Interpret Cancelled DONNA, Poly Interpret Cancelled DONNA, Complement Interp Cancelled Screen Negative Baby's Blood Type O pos Baby's DONNA Negative Doses of RhIg Required 1 Discharge Plan Discharge Discharging Clinician: Dangelo Matta Patient Disposition: Home Activity: as tolerated and pelvic rest Diet: regular Patient Instructions: Antibiotic Form Patient Language: Macedonian Stand Alone Forms: General Discharge Information Follow-up/Referrals: Dangelo Matta MD [Physician, [facility]] - 4 Weeks Discharge Medications: New acetaminophen 500 mg tablet 500 mg PO Q6H PRN (Reason: pain) Qty: 30 0RF ibuprofen 600 mg tablet 600 mg PO Q6H PRN (Reason: pain) Qty: 30 0RF Continued ferrous sulfate [FeroSul] 325 mg (65 mg iron) tablet 325 mg PO DAILY Qty: 90 0RF DHA 200 mg capsule 200 mg PO DAILY Date of admission: 01/28/25 16:43 Primary Care Provider: UNKNOWN,DOCTOR Admitting Provider: Dangelo Matta Attending physician on admission: Dangelo Matta Condition: Stable
--- NOTE | 2025-02-01 10:45 | PC.NURSE ---
Consulted with mother concerning needs and she shared that she would like to no longer put baby to breast and wishes to only pump and bottle feed, she is using her breast pump without pain. Mother is feeding appropriately for growth of and understands stimulating infant to eat if needed. Infant has had appropriate feedings in the last 24 hours meets the outcomes for weight, output, blood sugar and jaundice at this time. Reinforced understanding of milk production, transition of milk, signs of adequate intake, transition of stool, prevention/relief of engorgement, plugged ducts, mastitis, responsive feeding watching for feeding cues, community resources, and when to call a provider using the resource of the feeding sheet along with the mom and baby guide. Mother voiced understanding of the information shared, is confident to continue effectively her infant at home, when to call for assistance, denies any additional assistance or education at this time. Per mother she is already set up with her [facility] office in her county. Reported to the Primary RN.
[2025-02-02 11:16] VITALS: BP 129/71; PULSE 81; RESP 18; TEMP 36.9; O2SAT 100
== END 2025-02-01 11:50 | disposition home or self-care (01) | DRG 560 ==
LOC: ANHLDR 01-29 17:25 → ANHOB2 01-30 09:08
PROVIDERS: Admitting Provider Student in an Organized Health Care Education/Training Program; Visit Provider Student in an Organized Health Care Education/Training Program
DX: O26.893 Other specified pregnancy related conditions, third trimester (principal); O70.0 First degree perineal laceration during delivery; Z37.0 Single live birth; Z3A.39 39 weeks gestation of pregnancy; Z67.91 Unspecified blood type, Rh negative
CPT/HCPCS: 36415; 85014; 85018; 85025; 85461; 86593; 86850; 86880; 86900; 86901; 86902; 90384; A9270; J2590; J2790; J2795; J3010; J7120

== ENCOUNTER 2025-04-03 16:33 | Outpatient (CLI) | payer OTHER, SELFPAY ==
--- OUTSIDE RECORDS SUMMARY | 2025-04-03 18:10 | XMS_ITS | Clinical Summary ---
Author Organization [email or web address] Address [address] [place] [place] [address] Care Team Providers Care Production Pattern Maker Name Role Phone Unavailable Primary Care Provider Unavailabl e Source Comments [email or web address],non-owned Affiliates and Associated Physician Practices is amultiple site organization consisting of ambulatory clinics and hospital sitesin [place], [place], [place] and [place]. This disclosure is being madepursuant to the Care Everywhere program and may not contain all information available regarding this patient. Last updated 18.[email or web address] Allergies No known active allergies Medications * [...] DEPRESSION SCREENING 04/19/2024 COVID-19 VACCINE (1 - 2024-2 6 season) 2024 INFLUENZA VACCINE (#1) 2024 ZOSTER [...] age to complete this topic Insurance AETNA [facility] Address: [facility] [id number] [place] [id number]
--- OUTSIDE RECORDS SUMMARY | 2025-04-03 18:10 | XMS_ITS | Clinical Summary ---
Author Organization [facility] [facility] Address [address] [place] [address] Care Team Providers Care Social Work Administrator Name Role Phone No, Pcp WEB SOLUTIONS ARCHITECT Primary Care Provider Unavailabl e Social History Tobacco Use Types Packs/Day Years Used Date Smoking Tobacco: Never Assessed Comments Unknown Sex and Gender Information Value Date Recorded Sex Assigned at Not on file Legal Sex Female 4:29 PM EST Gender Identity Not on file Sexual Orientation Not on file Plan of Treatment Not on file Medical Devices Not on file Care Teams Social Work Administrator Relationship Specialty Start Date End Date No, Pcp, WEB SOLUTIONS ARCHITECT N/A Do not use PCP - General Family Medicine 03/20/20
--- OUTSIDE RECORDS SUMMARY | 2025-04-03 18:10 | XMS_ITS | Clinical Summary ---
Author Organization [facility] Address [address] [place] [id number] Care Team Providers Care Put In Beat Adjuster Name Role Phone Ankur Vanegas MD Primary Care Provider [phone] Allergies No known active allergies Medications atomoxetine (STRATTERA) 10 mg capsule 5 Active escitalopram oxalate (LEXAPRO) 10 mg tablet TAKE 1 Tablet BY MOUTH DAILY AT 7am 5 Active naltrexone (DEPADE) 50 mg tablet TAKE 1 Tablet BY MOUTH DAILY AT 7am 5 Active fluticasone propionate (FLONASE) 50 mcg/spray Gordon, Suspension nasal inhalerIndicatio ns:Allergic rhinitis, unspecified seasonality, [...] Date Smoking Tobacco: Every Day Cigarettes 0.3 10.9 Started: 05/24/2014 Smokeless Tobacco: Current Alcohol Use Standard Drinks/Week Comments Not Currently 0 (1 standard drink = 0.6 oz pur e alcohol) sober 3 months Comments No Sex and Gender Information Value Date Recorded Sex Assigned at Not on file Legal Sex Female 10:12 AM PRODUCTION CONTROL ANALYST Gender Identity Not on file Sexual Orientation Not on file Last Filed Vital Signs Vital Sign Reading Time Taken Comments Blood Pressure 100/70 05/24/2024 11:10 AM PRODUCTION CONTROL ANALYST Pulse 100 05/24/2024 11:10 AM PRODUCTION CONTROL ANALYST Temperature 36.6 C (97.9 F) 05/24/2024 11:10 AM PRODUCTION CONTROL ANALYST Respiratory Rate - - Oxygen Saturation 99% 05/24/2024 11:10 AM PRODUCTION CONTROL ANALYST Inhaled Oxygen Concentration - - Weight 85.7 kg (189 lb) 05/24/2024 11:10 AM PRODUCTION CONTROL ANALYST Height 162.6 cm (5' 4) 05/24/2024 11:10 AM PRODUCTION CONTROL ANALYST Body Mass Index 32.44 05/24/2024 11:10 AM PRODUCTION CONTROL ANALYST Plan of Treatment Upcoming Encounters Date Type Department Care Team (Late st Contact Info) Description 05/24/2025 10:00 AM PRODUCTION CONTROL ANALYST Office Visit [facility] Internal Medicine [facility] [id number] [facility] [address] [place] [address] Shirin Marie FNP [id number] [facility] [place] [facility] [address] [place] [address] Health Maintenance Due Date Last Done Comments HPV VACCINES (1 - 3-dose series) 2013 DTAP/TDAP/TD VACCINES (1 - Tdap) 2017 HEPATITIS B VACCINES (1 of 3 - 19+ 3-dose series) 06/18 CERVICAL CANCER SCREENING 07/07/2019 HPV/Cotest (21-29) 07/07/2019 PAP SMEAR 07/07/2019 Preventative Visit- Commercial 04/19/2024 INFLUENZA VACCINE (#1) 2024 Insurance AETNA CHOICE POS II Care Teams Put In Beat Adjuster Relationship Specialty [place] [id number] [address] PCP - General Internal Medicine 05/24/24
[2025-04-03 18:19] LABS: Beta HCG Quantitative < 2.39 mIU/ML
== END 2025-04-03 16:34 | disposition home or self-care (01) ==
LOC: ANHLAB 16:34
PROVIDERS: Visit Provider Student in an Organized Health Care Education/Training Program
DX: Z30.430 Encounter for insertion of intrauterine contraceptive device (principal)
CPT/HCPCS: 36415; 84702